=== PATIENT | male | born 1935 | race Caucasian/White ===

== ENCOUNTER 2017-02-07 22:31 | Inpatient (IN) ==
--- NOTE | 2017-02-07 22:37 | Emergency Department Note ---
START Narrative - START START: Emergency department with feeling like his legs were stuck to the floor. EMS was dispatched for difficulty in breathing. Patient denies this. He denies chest pain or abdominal pain. The swelling to his lower extremities on exam. Plan. Dyspnea workup. Patient will be seen by shift superintendent caustic cresylate.
[2017-02-07 22:58] LABS: Basophils # 0.1 K/mcL (0.0-0.2); Basophils % 0.8 %; Eosinophils # 0.3 K/mcL (0.0-0.6); Eosinophils % 4.4 %; Hematocrit 33.6 % (37.5-50.1); Hemoglobin 10.8 g/dL (12.9-16.9); Immature Granulocytes % 0.3 % (0-4); Lymphocytes % 15.6 %; Mean Corpuscular HGB Conc 32.1 g/dL (31.6-35.5); Mean Corpuscular Hemoglobin 31.6 pg (28.0-33.3); Mean Corpuscular Volume 98.2 fL (83.0-100.0); Mean Platelet Volume 8.6 fL (9.4-12.4); Monocytes # 0.6 K/mcL (0.0-1.3); Neutrophils # 4.6 K/mcL (1.6-8.9); Platelet Count 158 K/mcL (140-400); Red Blood Count 3.42 M/mcL (4.19-5.50); Red Cell Distribution Width 13.2 % (11.5-14.5); Segmented Neutrophils % 69.9 %
[2017-02-07 23:13] LABS: Calcium 8.6 mg/dL (8.6-10.8); Potassium 4.5 mEq/L (3.5-4.5)
--- NOTE | 2017-02-07 23:57 | Emergency Department Note ---
Disposition Clinical Impression: HEARD (dyspnea on exertion) Lower extremity edema Qualifiers: Laterality: bilateral Qualified Code(s): R60.0 - Localized edema Disposition: Admitted As Inpatient Condition: Fair General Adult HPI - General Chief complaint: ED Extremity Problem,Nontraumatic Stated complaint: bilateral leg edema Time Seen by Provider: 02/07/17 22:43 Source: patient Mode of arrival: private vehicle Limitations: no limitations Nursing Notes Reviewed: Yes Vital Signs Reviewed: Yes - History of Present Illness Pt Subjective Complaint: legs feel like they weigh a ton, generalized weakness, HEARD Onset (ago): day(s) ("Was fine - saw PCP in the office") Location: lower extremity Radiation: non-radiation Pain Severity: mild ("tightness") Pain Scale: 0 Quality: other Consistency: intermittent Improves with: nothing Worsens with: other (walking, trying to get into and out of bed) Associated symptoms: Reports: weakness. Denies: chest pain, cough, diaphoresis , fever/chills, headaches, loss of appetite, malaise, nausea/vomiting, rash, seizure, syncope Treatments Prior to Arrival: none - Related Data Home Medications Medication Instructions Recorded Confirmed Tamoxifen [Nolvadex] 20 mg PO DAILY 02/07/17 02/08/17 Warfarin [Coumadin] 7.5 mg PO QDPC 02/07/17 02/08/17 Ergocalciferol (VITAMIN D2) 400 unit PO QDPC 02/08/17 02/08/17 [Vitamin D] Allergies Allergy/AdvReac Type Severity Reaction Status Date / Time No Known Allergies Allergy Verified 02/07/17 22:49 All systems ED: reviewed and negative except as stated. Constitutional: Reports: weakness. Denies: fever, chills, weight change, night sweats ENT ED: Denies: congestion, dysphagia Cardiovascular: Reports: dyspnea on exertion, edema. Denies: chest pain, palpitations, orthopnea, syncope, paroxysmal nocturnal dyspnea Respiratory: Denies: cough, dyspnea, wheezes, hemoptysis, stridor, sputum production Gastrointestinal: Denies: abdominal pain, nausea, vomiting, diarrhea, constipation Genitourinary: Denies: dysuria, hematuria Musculoskeletal: Denies: back pain, neck pain, joint swelling Integumentary: Denies: rash, pruritus Neurological: Reports: weakness ("all over"). Denies: headache, numbness, paresthesias, vertigo Endocrine: Reports: fatigue Hematological/Lymphatic: Reports: easy bleeding, easy bruising. Denies: lymphadenopathy Past Medical History - Past Medical History Attestation: Yes The following information was validated with the patient. Source: patient Medical history: Reports: cancer Psychiatric history: Reports: no psych history - Social History Smoking Status: Never smoker Smokeless Tobacco Status: No Alcohol use: Reports: none Drug use: Reports: none Physical Exam - General Limitations: no limitations General appearance: alert, in no apparent distress - Head Head exam: atraumatic, normocephalic, normal inspection - Eye Eye exam: Present: normal appearance, PERRL. Absent: scleral icterus, conjunctival injection, periorbital swelling - ENT ENT exam: mucous membranes dry - Neck Neck exam: Present: normal inspection, full ROM, trachea midline. Absent: meningismus - Chest Chest inspection: Present: normal inspection, symmetric chest wall rise - Respiratory Respiratory exam: Absent: respiratory distress, wheezes, stridor, prolonged expiratory phase - Expanded Respiratory Exam Location: rales: Left, Right, Lower - Cardiovascular Cardiovascular exam: Present: regular rate, normal rhythm, normal heart sounds - Abdominal Exam Abdominal exam: Present: soft, Non-Tender. Absent: distention, guarding, rebound, rigidity, pulsatile mass - Neurological Exam Neurological exam: Present: alert, oriented X3, CN II-XII intact - Psychiatric Psychiatric exam: Present: normal affect, normal mood - Skin Skin exam: Present: warm, dry, intact, normal color Course Course Narrative: Patient was brought in by squad for evaluation of dyspnea. He states that he only felt short of breath because he "was doing a lot of work". When asked what type of work, he states that he was "trying to get up". He describes feeling like his legs weighed a ton and his feet were "glued to the floor." He denies unilateral weakness, paraesthesias, vertigo, ataxia, syncope, chest pain, palpitations, dyspnea at rest, or any other concerns. He states that he has had mild edema in his legs before, but "never this bad". Patient was initially seen by Dr. Calix. She put some orders in which have been resulted. Patient denies knowledge of his anemia or renal insufficiency. His ECG shows a sinus rhythm which changes into A-Fib. The rate was 120. Patient's rate and rhythm have been normal on the monitor. The EKG is the only time I've seen him tachy. He has no Hx of A-Fib. He is on Coumadin and is therapeutic. CXR shows a lung nodule. Outpatient CT is recommended. Patient is aware of this nodule and states that he has a CT of his chest done 2 or 3 times a year to check on it. Clinically, the patient appears to be in failure, however he has never been diagnosed with CHF, and his CXR does not show CM or edema. He has no ORTIZ at rest, is not hypoxic and has worsening renal function compared with a month ago, so I don't think IV lasix is the best choice right now. Will admit for gentle diuresis, echo, serial troponins, and further evaluation. Vital Signs Temperature 97.8 F 02/07/17 22:35 Pulse Rate 97 02/07/17 22:35 Respiratory Rate 20 02/07/17 22:35 Blood Pressure 124/89 02/07/17 22:35 O2 Sat by Pulse Oximetry 97 02/07/17 22:35 Temperature 97.8 F 02/08/17 05:14 Pulse Rate 81 02/08/17 05:14 Respiratory Rate 16 02/08/17 05:14 Blood Pressure 124/72 02/08/17 05:14 O2 Sat by Pulse Oximetry 99 02/08/17 05:14 Oxygen Delivery Oxygen Delivery Nasal Cannula Medical Decision Making - Medical Records Medical records reviewed: Yes I reviewed the patient's medical records. - Lab Data Lab results reviewed: Yes I reviewed the patient's lab results. Result diagrams: 02/07/17 22:52 02/07/17 22:52 Lab Results 02/07/17 02/07/17 02/07/17 Range/Units 22:52 22:52 22:52 WBC 6.6 (4.3-11.1) K/mcL RBC 3.42 L (4.19-5.50) M/mcL Hgb 10.8 L (12.9-16.9) g/dL Hct 33.6 L (37.5-50.1) % MCV 98.2 (83.0-100.0) fL MCH 31.6 (28.0-33.3) pg MCHC 32.1 (31.6-35.5) g/dL RDW 13.2 (11.5-14.5) % Plt Count 158 (140-400) K/mcL MPV 8.6 L (9.4-12.4) fL Immature Gran % 0.3 (0-4) % Seg Neutrophils % 69.9 % Lymphocytes % 15.6 % Monocytes % 9.0 % Eosinophils % 4.4 % Basophils % 0.8 % Neutrophils # 4.6 (1.6-8.9) K/mcL Lymphocytes # 1.0 (0.6-4.6) K/mcL Monocytes # 0.6 (0.0-1.3) K/mcL Eosinophils # 0.3 (0.0-0.6) K/mcL Basophils # 0.1 (0.0-0.2) K/mcL PT (9.4-12.1) Seconds INR APTT (26.0-36.0) Seconds Sodium 142 (136-145) mEq/L Potassium 4.5 (3.5-4.5) mEq/L Chloride 109 (98-109) mEq/L Carbon Dioxide 24 (19-29) mEq/L BUN 35 H (8-26) mg/dL Creatinine 1.59 H (0.72-1.25) mg/dL Est GFR ( Amer) 51 L (> 60) Est GFR (Non-Af Amer) 42 L (> 60) BUN/Creatinine Ratio 22 (6-26) Glucose 93 (70-99) mg/dL Calculated Osmolality 302 H (280-300) Calcium 8.6 (8.6-10.8) mg/dL Magnesium 2.4 (1.6-2.6) mg/dL Total Bilirubin 0.3 (0.2-1.2) mg/dL Direct Bilirubin 0.1 (0.0-0.5) mg/dL Indirect Bilirubin 0.2 (0.0-1.2) mg/dL AST 25 (5-34) Units/L ALT 18 (0-55) Units/L Alkaline Phosphatase 41 (38-126) Units/L Troponin I 0.01 (0-0.03) ng/mL B-Natriuretic Peptide (0-100) pg/mL Serum Total Protein 6.5 (6.0-8.3) g/dL Albumin 3.3 L (3.5-5.0) g/dL Globulin 3.2 (2.4-3.5) g/dL Albumin/Globulin Ratio 1.0 L (1.1-2.2) 02/07/17 02/07/17 Range/Units 22:52 22:52 WBC (4.3-11.1) K/mcL RBC (4.19-5.50) M/mcL Hgb (12.9-16.9) g/dL Hct (37.5-50.1) % MCV (83.0-100.0) fL MCH (28.0-33.3) pg MCHC (31.6-35.5) g/dL RDW (11.5-14.5) % Plt Count (140-400) K/mcL MPV (9.4-12.4) fL Immature Gran % (0-4) % Seg Neutrophils % % Lymphocytes % % Monocytes % % Eosinophils % % Basophils % % Neutrophils # (1.6-8.9) K/mcL Lymphocytes # (0.6-4.6) K/mcL Monocytes # (0.0-1.3) K/mcL Eosinophils # (0.0-0.6) K/mcL Basophils # (0.0-0.2) K/mcL PT 27.5 H (9.4-12.1) Seconds INR 2.5 APTT 38.1 H (26.0-36.0) Seconds Sodium (136-145) mEq/L Potassium (3.5-4.5) mEq/L Chloride (98-109) mEq/L Carbon Dioxide (19-29) mEq/L BUN (8-26) mg/dL Creatinine (0.72-1.25) mg/dL Est GFR ( Amer) (> 60) Est GFR (Non-Af Amer) (> 60) BUN/Creatinine Ratio (6-26) Glucose (70-99) mg/dL Calculated Osmolality (280-300) Calcium (8.6-10.8) mg/dL Magnesium (1.6-2.6) mg/dL Total Bilirubin (0.2-1.2) mg/dL Direct Bilirubin (0.0-0.5) mg/dL Indirect Bilirubin (0.0-1.2) mg/dL AST (5-34) Units/L ALT (0-55) Units/L Alkaline Phosphatase (38-126) Units/L Troponin I (0-0.03) ng/mL B-Natriuretic Peptide 259 H (0-100) pg/mL Serum Total Protein (6.0-8.3) g/dL Albumin (3.5-5.0) g/dL Globulin (2.4-3.5) g/dL Albumin/Globulin Ratio (1.1-2.2) - Radiology Data Radiology results reviewed: Yes I reviewed the patient's radiology results. Chest X-Ray 02/07/17 22:35 IMPRESSION: Right super hilar opacity, possible nodule. This is similar to 2014. Follow-up CT chest is suggested when feasible (if not previously performed). D/ / Mekhi Boyd MD / Mekhi Boyd MD Interpreting Provider: Mekhi Boyd MD
[2017-02-08 00:42] LABS: INR 2.5; Prothrombin Time 27.5 Seconds (9.4-12.1)
[2017-02-08 00:45] LABS: Activated Partial Thrombo Time 38.1 Seconds (26.0-36.0)
[2017-02-08 00:48] LABS: Albumin 3.3 g/dL (3.5-5.0); Bilirubin,Direct 0.1 mg/dL (0.0-0.5); Bilirubin,Indirect 0.2 mg/dL (0.0-1.2); Bilirubin,Total 0.3 mg/dL (0.2-1.2); Globulin 3.2 g/dL (2.4-3.5); Magnesium 2.4 mg/dL (1.6-2.6); Total Protein 6.5 g/dL (6.0-8.3)
--- NOTE | 2017-02-08 10:10 | Internal Med History&Physical ---
<Daniel Pineda - Last Filed: 02/08/17 12:30> Date of Encounter: 02/08/17 Time of Encounter: 10:09 Assessment and Plan (1) CHF (congestive heart failure) Current visit: Yes Status: Acute Patient meets the clinical diagnosis of heart failure. No previous diagnosis of heart failure. Last echo in 2013 had a normal EF and Moderate pulmonary HTN. Suspect diastolic heart failure or severe valvular dysfunction as Lungs are clear on examination but clinically edematous. Albumin is low but not significantly. - Bilateral LE pitting edema - New murmur - Abdominal fullness. Plan: - IV diuresis - Cardiac Diet - 2000ml fluid restrictions - daily weights - ASA daily - Echocardiogram Qualifiers: Qualified Code(s): I50.9 - Heart failure, unspecified (2) Cardiac murmur, unspecified Current visit: Yes Status: Acute (3) Leg weakness, bilateral Current visit: Yes Status: Acute Patient says he has felt more weak in his LE with difficulty moving them. This may be do to increased LE edema. Neurologically intact and does not appear the result of a stroke. Plan: - IV diuresis - PT/OT evaluation (4) Tachycardia Current visit: Yes Status: Acute Patient admitted with HR around 120. There was initial concern that his rhythm was switching into A-fib. Further review of the EKG appears to be Sinus Tachy. Currently he has a HR around 70. Plan: - Division Supervisor - Cause of Tachycardia is unknown but may be related to volume overload. (5) Lower extremity edema Current visit: Yes Status: Acute Likely secondary to increased intravascular volume. Can not rule out DVT but patient presented with an INR of 3.5 which makes it less likely to be a DVT. Plan: Gentle Diuresis Qualifiers: Laterality: bilateral Qualified Code(s): R60.0 - Localized edema (6) CHRISTY (acute kidney injury) Current visit: Yes Status: Acute CHRISTY on CKD. may be related to reduced cardiac output with tachycardia. Patient is clinically overloaded. May be a factor of Diastolic CHF or valvular dysfunction. Plan: - as plan above - monitor renal function with daily labs - renally dose antibiotics and avoid nephrotoxic medications. (7) Breast cancer in male Current visit: Yes Status: Acute Hx of left sided breast cancer with mastectomy 3 years ago. Patient continues with oral therapy. Plan: - Continue home medications. - Avoid left sided blood draws and line placements. Qualifiers: Qualified Code(s): C50.929 - Malignant neoplasm of unspecified site of unspecified male breast Internal Medicine - H&P: HPI Chief complaint: difficulty moving legs Admitted From: Emergency Dept Plans for Post Hospital Care: Home History of present illness: Mr. Stone is a 81 year old male with hx of left breast cancer and PE presented to the emergency department by EMS after he was short of breath and unable to walk. He says that over the past 2 weeks he has had increasing difficulty walking because he feet feel as though they are glued to the floor. He had contacted his PCP earlier in the week but his symptoms have worsened. He says that 2 days ago he was ambulating up and down stairs with difficulty and yesterday he felt as he could not lift his legs. He has also noticed increased edema in his LE and fullness in his abdomen. His shortness of breath has been progressive. He denies any medication changes. He is a poor historian regarding his medical hx and says he is unsure if he ever had a diagnosis of atrial fibrillation. He takes warfarin because he is on his Tamoxifen. He feels his breathing is improved. He does not taking any diuretics for his edema. He denies any cardiac history. Past Med Surg Social Fam HX - Past Medical History Medical history: cancer Psychiatric history: no psych history - Social History Smoking Status: Never smoker Smokeless Tobacco Status: No Alcohol use: none Drug use: none - Family History Sister Hx Family Cardiac Disorders: Yes (Stroke) Mother Adopted: No Hx Family Cardiac Disorders: Yes (HTN) Father Living Status: Hx Family Cancer: Yes (Lung) Internal Medicine - H&P: Meds Tamoxifen [Nolvadex] 20 mg PO DAILY 02/07/17 [History] Warfarin [Coumadin] 7.5 mg PO DAILY 02/07/17 [History] Ergocalciferol (VITAMIN D2) [Vitamin D] 400 unit PO DAILY 02/08/17 [History] Nystatin Cream [Mycostatin Cream] 1 appl TP BID 02/08/17 [History] Triamcinolone Acet 0.1% CRM [Kenalog] 1 appl TP BID 02/08/17 [History] Allergies No Known Allergies Allergy (Verified 02/07/17 22:49) All Systems PM: A 10-system review of systems was performed and is negative for pertinent findings except as documented above in the HPI. - Constitutional Constitutional: fatigue, falls, lethargy, no anorexia, no chills, no excessive sweating, no fever(s) - EENT Eyes: diplopia, no blurry vision, no change in vision Nose, mouth and throat: no dry mouth, no mouth lesions, no sore throat - Breasts Breasts: no pain - Cardiovascular Cardiovascular ROS IM: dyspnea, dyspnea on exertion, no chest pain, no claudication, no palpitations, no syncope - Respiratory Respiratory: dyspnea, no cough - Gastrointestinal Gastrointestinal: bloating, constipation, no hematemesis, no hematochezia, no loose stools - Genitourinary Genitourinary ROS male: no scrotal swelling - Neurological Neurological ROS: no confusion, no dizziness, no loss of vision, no memory loss - Constitutional Vitals: Temp Pulse Resp BP Pulse Ox 97.4 F L 79 16 141/88 100 02/08/17 07:48 02/08/17 07:48 02/08/17 07:48 02/08/17 07:48 02/08/17 07:48 General appearance: Present: cooperative, A&O X 3, pleasant, no acute distress - Head Head exam: Present: atraumatic, normocephalic - Eye Eye exam: Present: PERRL, conjuntiva pink, sclera anicteric Pupils: Present: PERRL - Neck Neck exam general surgery: Present: supple, trachea midline. Absent: lymphadenopathy - Respiratory Respiratory exam: Present: CTAB. Absent: accessory muscle use, rales, rhonchi, wheezes - Cardiovascular Cardiovascular exam: Present: RRR, +S1, +S2, systolic murmur. Absent: diastolic murmur, gallop, rubs Additional comments: grade 2/6 systolic/diastolic murmur - GI/Abdominal GI/Abdominal exam: Present: diminished bowel sounds, distended, firm. Absent: guarding, tenderness, no peritoneal signs - Extremities Exam Extremities exam: Present: pedal edema (bilateral LE edema 1+ pitting up to mid thigh), warm, radial pulses palpable and symetrical. Absent: calf tenderness, cyanotic - Neurological Exam Neurological exam: Present: alert, oriented X3, no focal deficits. Absent: pronater drift, facial droop, speech deficit - Psychiatric Psychiatric exam: Present: normal affect, normal mood Internal Med - H&P Results - Labs CBC & Chem 7: 02/07/17 22:52 02/07/17 22:52 <Kan Godwin - Last Filed: 02/08/17 13:09> Date of Encounter: 02/08/17 Internal Medicine - H&P: HPI History of present illness: Mr. Stone is a 81 year old male All Systems PM: A 10-system review of systems was performed and is negative for pertinent findings except as documented above in the HPI. - Constitutional Vitals: Temp Pulse Resp BP Pulse Ox 97.7 F 73 16 138/78 98 02/08/17 11:39 02/08/17 11:39 02/08/17 11:39 02/08/17 11:39 02/08/17 11:39 Internal Med - H&P Results - Labs CBC & Chem 7: 02/07/17 22:52 02/07/17 22:52 Labs: Urine 02/08/17 Range/Units 12:20 Urine Color Yellow (Yellow) Urine Clarity Cloudy A (Clear) Urine pH 6.0 (5.0-8.0) pH Units Ur Specific [place] 1.025 (1.010-1.025) Urine Protein Negative (Neg-Trace) mg/dL Urine Glucose (UA) Normal (Normal) mg/dL - Attending Attestation I examined this patient and my medical decision-making was reviewed with the TALENT DEVELOPMENT DIRECTOR/PA/Advanced Practice Nurse/Resident Physician. I agree with the documented findings, disposition and treatment plan as described except to the extent set forth below. 81 Y/O M with PMH of Breast CA since 2012 s/p mastectomy, radiation and chemo, on tamoxifen, PE on Coumadin, CKD II. He presented with complains of difficulty breathing and worsening leg edema, he reports his SOB has been progressive for the past 2 days and he has had leg edema in the past but this has recurred. He denies any cardiac history. He denies associated chest pain, palpitations, and abdominal symptoms. Labs and Imaging reviewed: CBC stable, chronic anemia, INR therapeutic 2.5, Chem at baseline with slightly increased creatinine, BNP 259, LFT unremarkable, CXR has no acute findings A/P: Suspected acute diastolic CHF exacerbation, SVTs on EKG, CHRISTY on CKD, Will give low dose of Lasix daily, with close monitoring of Chem, Obtain ECHO, continue Coumadin, Renal USS, Daily weight checks, Monitor INR, resume home meds , patient is not on BB at home, will hold for now, due to fluid overload, hold ACEI due to CHRISTY on CKD, PT/OT eval. Monitor on tele He is full code Rest of details as in Resident Hevianey documentation
[2017-02-08] MEDS ORDERED: Ondansetron 4 MG/2 ML VIAL IVP PRN (10:34)
[2017-02-08] MEDS ORDERED: Naloxone 0.4 MG/ML INJ IVP PRN (10:34)
[2017-02-08] MEDS: Furosemide 20 MG/2 ML VIAL IVP SCH (11:42)
[2017-02-08 12:39] LABS: Chol/HDL Ratio 3.6 (0-4.9)
[2017-02-08 12:42] LABS: Bilirubin,Urine Negative (Negative); Blood,Urine Negative (Negative); Clarity,Urine Cloudy (Clear); Color,Urine Yellow (Yellow); Glucose,Urine (UA) Normal (Normal); Ketones,Urine Negative (Negative); Leukocyte Esterase,Urine Moderate (Negative); Nitrite,Urine Negative (Negative); Protein,Urine Negative (Neg-Trace); Specific Gravity,Urine 1.025 (1.010-1.025); Urobilinogen,Urine Normal (Normal)
[2017-02-08 12:45] LABS: Bacteria,Urine None Seen per hpf (None-Few); Hyaline Casts,Urine None Seen per lpf (None-Few); RBC,Urine 0-3 per hpf (0-3); Squamous Epithelial Cell,Urine Many per lpf (None-Few); WBC,Urine 50-100 per hpf (0-3)
[2017-02-08] MEDS: Nystatin Cream 15 GM TUBE TP SCH (20:04)
[2017-02-08] MEDS: Triamcinolone Acet 0.1% CRM 15 GM TUBE TP SCH (20:05)
[2017-02-09 05:44] LABS: Basophils # 0.1 K/mcL (0.0-0.2); Basophils % 0.7 %; Eosinophils # 0.4 K/mcL (0.0-0.6); Eosinophils % 5.4 %; Hematocrit 33.9 % (37.5-50.1); Hemoglobin 10.7 g/dL (12.9-16.9); INR 2.4; Immature Granulocytes % 0.4 % (0-4); Lymphocytes # 1.6 K/mcL (0.6-4.6); Lymphocytes % 22.1 %; Mean Corpuscular HGB Conc 31.6 g/dL (31.6-35.5); Mean Corpuscular Hemoglobin 31.2 pg (28.0-33.3); Mean Corpuscular Volume 98.8 fL (83.0-100.0); Mean Platelet Volume 8.9 fL (9.4-12.4); Monocytes # 0.5 K/mcL (0.0-1.3); Neutrophils # 4.5 K/mcL (1.6-8.9); Platelet Count 161 K/mcL (140-400); Prothrombin Time 26.3 Seconds (9.4-12.1); Red Blood Count 3.43 M/mcL (4.19-5.50); Red Cell Distribution Width 13.3 % (11.5-14.5); Segmented Neutrophils % 64.4 %
[2017-02-09 05:57] LABS: BUN/Creatinine Ratio 22 (6-26); Blood Urea Nitrogen 28 mg/dL (8-26); Calcium 8.5 mg/dL (8.6-10.8); Carbon Dioxide 24 mEq/L (19-29); Chloride 106 mEq/L (98-109); Glucose 89 mg/dL (70-99); Osmolality,Calculated 293 (280-300); Potassium 3.9 mEq/L (3.5-4.5); Sodium 139 mEq/L (136-145); eGFR For African Americans > 60 (> 60); eGFR For Non-African Americans 53 (> 60)
--- NOTE | 2017-02-09 09:28 | Electrocardiograph Report ---
[address] [place] [address] Test Date: 2017-02-07 Pat Name: Edison Stone Department: 105 Room: 3B Gender: M Cut Out Marker: : 1935 Requested By: Dionna See Order Number: [id number] Reading MD: Dontrell Shaffer MD Measurements Intervals [place] Rate: 120 P: AK: 0 QRS: -29 QRSD: 110 T: 59 QT: 322 QTc: 393 Interpretive Statements ATRIAL FIBRILLATION WITH RAPID VENTRICULAR RESPONSE INCOMPLETE RIGHT BUNDLE BRANCH BLOCK POSSIBLE LATERAL MYOCARDIAL INFARCTION, PROBABLY OLD Electronically Signed On 02-09-2017 9:26:45 EDT by Dontrell Shaffer MD
[2017-02-09] MEDS: Furosemide 20 MG/2 ML VIAL IVP SCH (10:55)
[2017-02-09] MEDS: Pantoprazole 40 MG VIAL IVP SCH (10:55)
[2017-02-09] MEDS: Nystatin Cream 15 GM TUBE TP SCH ×2 (10:56→22:10)
[2017-02-09] MEDS: Triamcinolone Acet 0.1% CRM 15 GM TUBE TP SCH ×2 (10:56→22:10)
--- NOTE | 2017-02-09 13:23 | ECHO - Doppler Report ---
Echocardiogram Name: Edison Stone Date of Study: 02/09/2017 Date: 1935 Ht: 72.0 in Medical Record#: [id number] Age: 81 Wt: 240.0 lb Gender: Male BSA: 2.3 Order #: [id number] Location: [facility] Room #: 3B44 Reading Physician: Charli Alberto DO, FACC, MILAGROS Archaeologist: INOCENTE GarciaT, RDCS Ordering Physician: Ludy Douglass CNP Primary Physician: Benny Miller MD Indications: Congestive heart failure Impressions: Technically sub-optimal due to poor echocardiographic windows. LVEF 60-65%. Grossly normal LV chamber size, wall thickness and function. Mild left ventricular diastolic dysfunction. Normal right ventricular structure and function. Aortic valve was not well visualized, but grossly appear calcified. No evidence of aortic stenosis by Doppler. No evidence of pulmonary hypertension. Left Ventricular Wall Motion: Rest Echo Findings All wall segments showed normal motion. Findings: Study Quality * Technically sub-optimal due to poor echocardiographic windows. ECG Findings * Normal sinus rhythm. Left Ventricle * LVEF 60-65%. * Grossly normal LV chamber size, wall thickness and function. * Mild left ventricular diastolic dysfunction. Right Ventricle * Normal right ventricular structure and function. Left Atrium * Mildly dilated left atrium. Right Atrium * Normal right atrial size. Interatrial Septum * Interatrial septum not well evaluated. Aortic Valve * Aortic valve was not well visualized, but grossly appear calcified. * No aortic regurgitation. * No evidence of aortic stenosis by Doppler. Mitral Valve * Normal mitral valve structure and function. * No mitral regurgitation. * No mitral stenosis. Tricuspid Valve * Normal tricuspid valve structure and function. * Trace tricuspid regurgitation. * No evidence of pulmonary hypertension. Pulmonic Valve * Pulmonic valve not well visualized. Aorta * Normally sized aortic root. Pericardium * The pericardium appears normal. IVC * The IVC is not well evaluated. Pulmonary Artery * Pulmonary artery not well visualized. History Measurements: BP: 125/ 75 2D Normal Values IVSd: .90 cm 0.6 - 1.0 cm LVIDd: 3.30 cm 3.7 - 5.6 cm LVPWd: 1.00 cm 0.6 - 1.1 cm LVIDs: 2.60 cm 1.5 - 3.6 cm AO: 2.60 cm < 4.0 cm LA: 3.00 cm 2.0 - 4.0cm %FS: 21.20 cm >25 % LA volume: 44 Mitral Valve Dec Time:232.00 msec Peak E:.73 m/sec Peak A:.98 m/sec E/A Ratio:0.7 Peak E' Lat Fili:10 cm/s Peak E' Med Fili:10 cm/s E/E' Lat Ratio:7.3 E/E' Med Ratio:7.3 Tricuspid Valve TV Regurg Peak Grad: 20.00mmHg TV Regurg Peak Fili: 2.25m/sec Updated by Charli Alberto DO, FACAna Rosa, MILAGROS, PATY on 02/09/2017 1:16:13 PM electronically signed on 02/09/2017 1:17:12 PM with status of Final Wall Motion Mehta: 1=Normal, 2=Hypokinesis, 3=Akinesis, 4=Dyskinesis, 5=Aneurysmal, 6=Hyperkinetic, X=Not Visualized (Blank)=Missing
[2017-02-09] MEDS: *HR* Warfarin 7.5 MG TABLET PO SCH (17:34)
--- NOTE | 2017-02-09 18:54 | Internal Med Progress Note ---
Date of Encounter: 02/09/17 Time of Encounter: 14:30 - Assessment and plan (1) CHF (congestive heart failure) Current Visit: Yes Status: Acute Assessment and plan: Patient is diuresing well. His lower extremity edema and dyspnea are improving. Renal functioning now back to his baseline. OT and PT consultations are pending. Echocardiogram revealing preserved ejection fraction of 60-65% with mild diastolic dysfunction. Likely new diagnosis of acute diastolic heart failure. We will continue to diurese. Echocardiogram impressions: Technically suboptimal due to poor echocardiographic windows. LVEF 60-65%. Grossly normal LV chamber size, wall thickness and function. Mild left ventricular diastolic dysfunction. Normal right ventricular structure and function. Aortic valve was not well visualized , but grossly appeared calcified. No evidence of aortic stenosis by Doppler. No evidence of pulmonary hypertension. (2) CKD (chronic kidney disease) stage 3, GFR 30-59 ml/min Current Visit: Yes Status: Chronic Assessment and plan: Mild acute kidney injury superimposed on chronic kidney disease stage III resolved. He is now consistent with his baseline. We will continue to trend. (3) Acute respiratory failure Current Visit: Yes Status: Acute Assessment and plan: Currently requiring supplemental oxygenation, no oxygen at home. We will wean as he tolerates. Qualifiers: Respiratory failure complication: hypoxia Qualified Code(s): J96.01 - Acute respiratory failure with hypoxia (4) Lower extremity edema Current Visit: Yes Status: Acute Assessment and plan: Resolving, diuresing. We will trend. Currently with 2+ pitting edema bilaterally which the patient and his state is an improvement from when he arrived. Qualifiers: Laterality: bilateral Qualified Code(s): R60.0 - Localized edema (5) HEARD (dyspnea on exertion) Current Visit: Yes Status: Acute (6) Cardiac murmur, unspecified Current Visit: Yes Status: Acute (7) Leg weakness, bilateral Current Visit: Yes Status: Acute Assessment and plan: OT and PT consultations are pending. Patient stating he does not feel as if he could not stand up. (8) Tachycardia Current Visit: Yes Status: Resolved (9) Breast cancer in male Current Visit: Yes Status: Chronic Assessment and plan: Status post mastectomy on the left 3 years ago. Continues with oral therapy. Avoid blood draws a line placements the left side (10) Anticoagulated on Coumadin Current Visit: Yes Status: Chronic Assessment and plan: INR therapeutic at 2.4 - Subjective Interval history: Patient seen and examined. On examination, patient is sitting upright in bed conversing with his . Patient sitting his shortness of breath has improved but is not yet back to his baseline. Patient sitting is eating and drinking well. Patient said the swelling in his legs appears to be going down slightly but not back to his baseline. He still endorses extreme weakness does not think that he will be away to stand up. - Constitutional Vitals: Temp Pulse Resp BP Pulse Ox 97.7 F 70 16 125/73 98 02/09/17 14:42 02/09/17 10:44 02/09/17 14:42 02/09/17 14:42 02/09/17 14:42 General appearance: Present: cooperative, A&O X 3, pleasant, no acute distress, answers questions appropriately - Head Head exam: Present: atraumatic, normocephalic - Eye Eye exam: Present: PERRL, conjuntiva pink, sclera anicteric Pupils: Present: PERRL - Neck Neck exam general surgery: Present: supple, trachea midline. Absent: lymphadenopathy - Respiratory Respiratory exam: Present: CTAB. Absent: accessory muscle use, rales, respiratory distress, rhonchi, wheezes - Cardiovascular Cardiovascular exam: Present: RRR, +S1, +S2. Absent: diastolic murmur, gallop, rubs, systolic murmur - GI/Abdominal GI/Abdominal exam: Present: distended, normal bowel sounds, soft, no peritoneal signs. Absent: tenderness - Extremities Exam Extremities exam: Present: pedal edema (2+ bilaterally), warm, radial pulses palpable and symetrical. Absent: calf tenderness, cyanotic - Neurological Exam Neurological exam: Present: alert, CN II-XII intact, oriented X3, no focal deficits, strengths equal and symetr throughout. Absent: pronater drift, facial droop, speech deficit - Skin Skin exam: Present: dry, intact, normal color, warm Internal Medicine: Result - Labs CBC & Chem 7: 02/09/17 05:12 02/09/17 05:12 Labs: Short CBC 02/09/17 Range/Units 05:12 WBC 7.0 (4.3-11.1) K/mcL Hgb 10.7 L (12.9-16.9) g/dL Hct 33.9 L (37.5-50.1) % Plt Count 161 (140-400) K/mcL Neutrophils # 4.5 (1.6-8.9) K/mcL BMP 02/09/17 05:12 Sodium 139 Potassium 3.9 Chloride 106 Carbon Dioxide 24 BUN 28 H Creatinine 1.29 H Glucose 89 Calcium 8.5 L - ABG Interpretation ABG results: PT/INR, D-dimer PT 26.3 Seconds (9.4-12.1) H 02/09/17 05:12 Consult Discharge Plan - Plan Referrals: Benny Miller MD [Primary Care Provider] - 02/11/17 10:00 am
[2017-02-10 05:40] LABS: Basophils % 0.6 %; Eosinophils # 0.4 K/mcL (0.0-0.6); Eosinophils % 6.1 %; Hematocrit 32.7 % (37.5-50.1); Hemoglobin 10.5 g/dL (12.9-16.9); Immature Granulocytes % 0.3 % (0-4); Lymphocytes # 1.3 K/mcL (0.6-4.6); Lymphocytes % 19.1 %; Mean Corpuscular HGB Conc 32.1 g/dL (31.6-35.5); Mean Corpuscular Hemoglobin 31.3 pg (28.0-33.3); Mean Corpuscular Volume 97.3 fL (83.0-100.0); Mean Platelet Volume 8.7 fL (9.4-12.4); Monocytes # 0.6 K/mcL (0.0-1.3); Monocytes % 8.7 %; Neutrophils # 4.5 K/mcL (1.6-8.9); Platelet Count 152 K/mcL (140-400); Red Blood Count 3.36 M/mcL (4.19-5.50); Red Cell Distribution Width 13.1 % (11.5-14.5); Segmented Neutrophils % 65.2 %
[2017-02-10 05:46] LABS: INR 2.1; Prothrombin Time 22.9 Seconds (9.4-12.1)
[2017-02-10 06:14] LABS: BUN/Creatinine Ratio 26 (6-26); Blood Urea Nitrogen 32 mg/dL (8-26); Calcium 8.4 mg/dL (8.6-10.8); Carbon Dioxide 24 mEq/L (19-29); Chloride 107 mEq/L (98-109); Glucose 96 mg/dL (70-99); Osmolality,Calculated 297 (280-300); Sodium 140 mEq/L (136-145); eGFR For African Americans > 60 (> 60); eGFR For Non-African Americans 57 (> 60)
[2017-02-10] MEDS: Triamcinolone Acet 0.1% CRM 15 GM TUBE TP SCH ×2 (09:37→21:50)
[2017-02-10] MEDS: Furosemide 20 MG/2 ML VIAL IVP SCH (09:37)
[2017-02-10] MEDS: Nystatin Cream 15 GM TUBE TP SCH ×2 (09:37→21:51)
[2017-02-10] MEDS: Pantoprazole 40 MG VIAL IVP SCH (09:37)
--- NOTE | 2017-02-10 12:57 | Internal Med Progress Note ---
Date of Encounter: 02/10/17 Time of Encounter: 10:45 - Subjective Interval history: Patient was examined this morning at approximately 1045. Family member at bedside. Patient reports pain all over just since this morning. Family member states that when he complains of pain that it is 10 out of 10 because he never complains of pain. Patient has to be prompted to answer questions. Family states that patient does not like to speak when he is in pain. After prompting he describes the pain is achy, diffuse from head to toes, he reports clear rhinorrhea, and fatigue since last night. He also reports low abdominal pain without nausea, vomiting, or diarrhea. His urine yesterday was negative. He is unsure of place or time. He is alert and oriented to name. Family says that this is normal for him. He does have rhonchi and wheezing in posterior bases. Urine yesterday was negative and I did order flu swab. - Constitutional Vitals: Temp Pulse Resp BP Pulse Ox 97.8 F 71 17 111/69 98 02/10/17 12:26 02/10/17 12:26 02/10/17 11:32 02/10/17 12:26 02/10/17 12:26 General appearance: Present: cooperative, A&O X 3, pleasant, no acute distress, answers questions appropriately Internal Medicine: Result - Labs CBC & Chem 7: 02/10/17 05:15 02/10/17 05:15 Labs: Short CBC 02/10/17 Range/Units 05:15 WBC 6.9 (4.3-11.1) K/mcL Hgb 10.5 L (12.9-16.9) g/dL Hct 32.7 L (37.5-50.1) % Plt Count 152 (140-400) K/mcL Neutrophils # 4.5 (1.6-8.9) K/mcL BMP 02/10/17 05:15 Sodium 140 Potassium 4.0 Chloride 107 Carbon Dioxide 24 BUN 32 H Creatinine 1.21 Glucose 96 Calcium 8.4 L - ABG Interpretation ABG results: PT/INR, D-dimer PT 22.9 Seconds (9.4-12.1) H 02/10/17 05:15 Consult Discharge Plan - Plan Referrals: Benny Miller MD [Primary Care Provider] - 02/11/17 10:00 am Internal Medicine - CN: Leia - Labs CBC & Chem 7: 02/10/17 05:15 02/10/17 05:15 Labs: Short CBC 02/10/17 Range/Units 05:15 WBC 6.9 (4.3-11.1) K/mcL Hgb 10.5 L (12.9-16.9) g/dL Hct 32.7 L (37.5-50.1) % Plt Count 152 (140-400) K/mcL Neutrophils # 4.5 (1.6-8.9) K/mcL BMP 02/10/17 05:15 Sodium 140 Potassium 4.0 Chloride 107 Carbon Dioxide 24 BUN 32 H Creatinine 1.21 Glucose 96 Calcium 8.4 L - ABG Interpretation ABG results: PT/INR, D-dimer PT 22.9 Seconds (9.4-12.1) H 02/10/17 05:15
--- NOTE | 2017-02-10 13:46 | Internal Med Progress Note ---
Date of Encounter: 02/10/17 Time of Encounter: 10:45 - Assessment and plan (1) CHF (congestive heart failure) Current Visit: Yes Status: Acute Assessment and plan: Mr. Stone had an echocardiogram on February 09. Indicated congestive heart failure. Is a suboptimal study due to poor echocardiographic windows. LVEF is 60-65%. Grossly normal LV chamber size, wall thickness and function. Mild diastolic dysfunction, normal right ventricular structure and function. Aortic valve appeared grossly calcified. No evidence of aortic stenosis or pulmonary hypertension. by Doppler. Patient has 2+ pitting edema to bilateral lower extremities. He states this is actually better than yesterday. His lungs are clear and diminished posteriorly. He denies cough. Lasix 20 mg IV daily Renal function has returned to baseline, within normal limits. Creatinine 1.21. Continue to monitor labs Telemetry Vital signs Qualifiers: Congestive heart failure type: diastolic Congestive heart failure chronicity: acute Qualified Code(s): I50.31 - Acute diastolic (congestive) heart failure (2) HEARD (dyspnea on exertion) Current Visit: Yes Status: Acute Assessment and plan: Plan as above. (3) Lower extremity edema Current Visit: Yes Status: Chronic Assessment and plan: Resolving. Patient has 2+ pitting edema to bilateral lower extremities. Patient states this is better than yesterday. Plan as above Qualifiers: Laterality: bilateral Qualified Code(s): R60.0 - Localized edema (4) Leg weakness, bilateral Current Visit: Yes Status: Acute Assessment and plan: Patient was assessed by physical therapy today. He was a 2 person assist to get up to the bedside. They were unable to get him to standing. He was unable to use the walker. They did recommend inpatient rehabilitation for him. He says he needs to think about it. says that he would like to go to [employer] [facility], he has family member who works there. I did speak with the social insurance administrator about this and she will speak with patient. Continue physical therapy Inpatient rehabilitation placement Fall precautions (5) Tachycardia Current Visit: Yes Status: Resolved (6) Breast cancer in male Current Visit: Yes Status: Chronic Assessment and plan: Patient has linear healed incision to left chest. Continues to take by mouth medications. No blood draws or blood pressures to left side Continue home medications. Qualifiers: Breast location: unspecified site of breast Laterality: left Qualified Code(s): C50.922 - Malignant neoplasm of unspecified site of left male breast (7) CKD (chronic kidney disease) stage 3, GFR 30-59 ml/min Current Visit: Yes Status: Chronic Assessment and plan: Creatinine has returned to normal today 1.21. Avoid nephrotoxins and NSAIDs Continue to monitor labs (8) Anticoagulated on Coumadin Current Visit: Yes Status: Chronic Assessment and plan: INR is 2.1 today. Redraw in the morning. - Time Spent With Patient less than 15 minutes - Subjective Interval history: Patient was evaluated approximately 1045 this morning. When I initially entered the room he was being evaluated by physical therapy. He was unable to stand with 2 person assist. He was a two-person assist just to get up to the side of the bed. The verbally recommended inpatient rehabilitation to me. Patient states he needs to think about it and wants to question his family before he makes a decision. He states that he would like to go to [facility] because he has family who work there. His is at bedside in this supportive of him going to rehabilitation. He is alert and oriented, he has 2+ pitting edema to bilateral lower extremities. He reports that he has not had a bowel movement for 3 days. He is already getting MiraLAX and Colace. I did talk to the social insurance administrator about speaking to him about placement today. Mr. Stone is hard of hearing, wears a hearing aid. He says that he may decide to sign out AMA and go home. - Constitutional Vitals: Temp Pulse Resp BP Pulse Ox 97.8 F 71 17 111/69 98 02/10/17 12:26 02/10/17 12:26 02/10/17 11:32 02/10/17 12:26 02/10/17 12:26 General appearance: Present: cooperative, A&O X 3, pleasant, no acute distress, answers questions appropriately - Head Head exam: Present: normal inspection - Eye Eye exam: Present: normal appearance, conjuntiva pink - ENT ENT exam: Present: mucous membranes moist, normal exam - Neck Neck exam general surgery: Present: normal inspection. Absent: lymphadenopathy , tenderness - Respiratory Respiratory exam: Present: decreased breath sounds, CTAB. Absent: rales, respiratory distress, rhonchi, wheezes - Cardiovascular Cardiovascular exam: Present: RRR, +S1, +S2. Absent: diastolic murmur, systolic murmur - GI/Abdominal GI/Abdominal exam: Present: normal bowel sounds, soft. Absent: hepatomegaly, tenderness - Extremities Exam Extremities exam: Present: pedal edema, warm, radial pulses palpable and symetrical. Absent: tenderness Additional comments: Patient has 2+ pitting edema to bilateral lower extremities. Pedal pulses not palpable due to edema. Bilateral feet are pink and warm. - Neurological Exam Neurological exam: Present: alert, oriented X3, no focal deficits. Absent: facial droop, speech deficit Internal Medicine: Result - Labs CBC & Chem 7: 02/10/17 05:15 02/10/17 05:15 Labs: Short CBC 02/10/17 Range/Units 05:15 WBC 6.9 (4.3-11.1) K/mcL Hgb 10.5 L (12.9-16.9) g/dL Hct 32.7 L (37.5-50.1) % Plt Count 152 (140-400) K/mcL Neutrophils # 4.5 (1.6-8.9) K/mcL BMP 02/10/17 05:15 Sodium 140 Potassium 4.0 Chloride 107 Carbon Dioxide 24 BUN 32 H Creatinine 1.21 Glucose 96 Calcium 8.4 L - ABG Interpretation ABG results: PT/INR, D-dimer PT 22.9 Seconds (9.4-12.1) H 02/10/17 05:15 Consult Discharge Plan - Plan Referrals: Benny Miller MD [Primary Care Provider] - 02/11/17 10:00 am
--- NOTE | 2017-02-10 14:05 | Event Note ---
Date of Encounter: 02/10/17 Time of Encounter: 13:45 I was notified by patient's nurse that he was choking frequently today. While eating lunch, he choked on liquids on his tray. witnessed the episode and said that he turned blue and was unable to speak or breathe. Nurse reports the patient breathing is normal at this time and he has recovered. Stat portable chest x-ray was ordered, as well as speech and swallow. We will continue to monitor.
[2017-02-10] MEDS: *HR* Warfarin 7.5 MG TABLET PO SCH (17:24)
[2017-02-10] MEDS ORDERED: *HR* Metoprolol 5 MG/5 ML VIAL IVP ONE (21:38)
[2017-02-11 04:37] LABS: Basophils % 0.2 %; Eosinophils % 0.1 %; Hematocrit 31.7 % (37.5-50.1); Hemoglobin 10.4 g/dL (12.9-16.9); Immature Granulocytes % 0.4 % (0-4); Lymphocytes # 1.1 K/mcL (0.6-4.6); Lymphocytes % 8.6 %; Mean Corpuscular HGB Conc 32.8 g/dL (31.6-35.5); Mean Corpuscular Hemoglobin 32.1 pg (28.0-33.3); Mean Corpuscular Volume 97.8 fL (83.0-100.0); Mean Platelet Volume 9.2 fL (9.4-12.4); Monocytes # 0.7 K/mcL (0.0-1.3); Monocytes % 5.3 %; Neutrophils # 11.2 K/mcL (1.6-8.9); Platelet Count 141 K/mcL (140-400); Red Blood Count 3.24 M/mcL (4.19-5.50); Red Cell Distribution Width 13.2 % (11.5-14.5); Segmented Neutrophils % 85.4 %
[2017-02-11 04:40] LABS: INR 2.3
[2017-02-11 04:56] LABS: BUN/Creatinine Ratio 24 (6-26); Blood Urea Nitrogen 32 mg/dL (8-26); Calcium 8.4 mg/dL (8.6-10.8); Carbon Dioxide 24 mEq/L (19-29); Chloride 103 mEq/L (98-109); Glucose 129 mg/dL (70-99); Osmolality,Calculated 291 (280-300); Sodium 136 mEq/L (136-145); eGFR For African Americans > 60 (> 60); eGFR For Non-African Americans 51 (> 60)
[2017-02-11] MEDS: Furosemide 20 MG/2 ML VIAL IVP SCH (09:33)
[2017-02-11] MEDS: Pantoprazole 40 MG VIAL IVP SCH (09:33)
[2017-02-11] MEDS: Triamcinolone Acet 0.1% CRM 15 GM TUBE TP SCH ×2 (09:34→21:15)
[2017-02-11] MEDS: Nystatin Cream 15 GM TUBE TP SCH ×2 (09:34→21:13)
[2017-02-11] MEDS: *HR* Warfarin 7.5 MG TABLET PO SCH (17:02)
[2017-02-11] MEDS: Acetaminophen 325 MG TABLET PO PRN (21:05)
--- NOTE | 2017-02-11 21:10 | Internal Med Progress Note ---
Date of Encounter: 02/11/17 Time of Encounter: 08:15 - Assessment and plan (1) CHF (congestive heart failure) Current Visit: Yes Status: Acute Assessment and plan: Patient admitted congestive heart failure. His labs remained within normal limits. Today during examination S1 and S2 were heard with a regular rate and rhythm. No tachycardia noted. He has 2+ nonpitting edema to bilateral lower extremities. and patient both state that they look better. I agree Lasix 20 mg IV daily We will continue to monitor his labs He remains on telemetry Vital signs Qualifiers: Congestive heart failure type: diastolic Congestive heart failure chronicity: acute Qualified Code(s): I50.31 - Acute diastolic (congestive) heart failure (2) HEARD (dyspnea on exertion) Current Visit: Yes Status: Acute Assessment and plan: Plan as above. (3) Lower extremity edema Current Visit: Yes Status: Chronic Assessment and plan: Resolving. Patient has 2+ pitting edema to bilateral lower extremities. Patient and both states this is better than yesterday. Plan as above Qualifiers: Laterality: bilateral Qualified Code(s): R60.0 - Localized edema (4) Leg weakness, bilateral Current Visit: Yes Status: Acute Assessment and plan: Patient is receiving physical therapy. He is to go to [facility] tomorrow for rehabilitation PT. (5) Tachycardia Current Visit: Yes Status: Resolved Assessment and plan: Patient had episode of A. fib RVR in the emergency department. He converted. Last night potentially he could have gone back into A. fib as well. Despite a verbal order EKG was never obtained. He did convert and rate slowed below 100 with IV and by mouth beta galileo. We will reassess in the morning. (6) Breast cancer in male Current Visit: Yes Status: Chronic Assessment and plan: Patient has linear healed incision to left chest. Continues to take by mouth medications. No blood draws or blood pressures to left side Continue home medications. Qualifiers: Breast location: unspecified site of breast Laterality: left Qualified Code(s): C50.922 - Malignant neoplasm of unspecified site of left male breast (7) CKD (chronic kidney disease) stage 3, GFR 30-59 ml/min Current Visit: Yes Status: Chronic Assessment and plan: Creatinine is 1.35 today. Near baseline. Patient is not on an IGNACIO inhibitor or an ARB Avoid nephrotoxins Lasix dose at 20 mg IV daily Continue to monitor labs in the morning. (8) Anticoagulated on Coumadin Current Visit: Yes Status: Chronic Assessment and plan: INR is 2.1 today. Redraw in the morning. - Subjective Interval history: I assessed Mr. Cervantes early this morning at approximately 08 15 due to report from nurse on retail shift supervisor that he had a mental status change. Apparently last night he was talking to rabbits outside the window. Patient is on the third floor. He was speaking to his asking someone else in the room to please take her home even though they were the only 2 in the room. reports confusion over the last 2 weeks with visual hallucinations. She says that about a week and half ago he was standing in the kitchen talking to someone who was not there. Patient states that he was reading about the neighbor in the newspaper and was talking to them in the kitchen. She also has noticed that his gait has slowed and that he needs help getting in and out of bed for the last 2 weeks. She also reports that he has been repeating stories over the last 2 weeks and has no recollection of telling her more than once. - Constitutional Vitals: Temp Pulse Resp BP Pulse Ox 100.9 F H 95 16 117/74 96 02/11/17 19:33 02/11/17 19:33 02/11/17 19:33 02/11/17 19:33 02/11/17 19:33 General appearance: Present: cooperative, A&O X 3, pleasant, no acute distress, answers questions appropriately Internal Medicine: Result - Labs CBC & Chem 7: 02/11/17 03:58 02/11/17 03:58 Labs: Short CBC 02/11/17 Range/Units 03:58 WBC 13.1 H D (4.3-11.1) K/mcL Hgb 10.4 L (12.9-16.9) g/dL Hct 31.7 L (37.5-50.1) % Plt Count 141 (140-400) K/mcL Neutrophils # 11.2 H (1.6-8.9) K/mcL BMP 02/11/17 03:58 Sodium 136 Potassium 4.0 Chloride 103 Carbon Dioxide 24 BUN 32 H Creatinine 1.35 H Glucose 129 H Calcium 8.4 L - ABG Interpretation ABG results: PT/INR, D-dimer PT 25.0 Seconds (9.4-12.1) H 02/11/17 03:58 Consult Discharge Plan - Plan Referrals: Benny Miller MD [Primary Care Provider] - 02/11/17 10:00 am
[2017-02-12 06:17] LABS: Hematocrit 31.9 % (37.5-50.1); Hemoglobin 10.1 g/dL (12.9-16.9); Mean Corpuscular HGB Conc 31.7 g/dL (31.6-35.5); Mean Corpuscular Hemoglobin 31.2 pg (28.0-33.3); Mean Corpuscular Volume 98.5 fL (83.0-100.0); Mean Platelet Volume 9.3 fL (9.4-12.4); Platelet Count 135 K/mcL (140-400); Red Blood Count 3.24 M/mcL (4.19-5.50); Red Cell Distribution Width 12.9 % (11.5-14.5)
[2017-02-12 06:24] LABS: INR 2.3; Prothrombin Time 25.6 Seconds (9.4-12.1)
[2017-02-12 06:40] LABS: BUN/Creatinine Ratio 24 (6-26); Blood Urea Nitrogen 31 mg/dL (8-26); Calcium 8.4 mg/dL (8.6-10.8); Carbon Dioxide 26 mEq/L (19-29); Chloride 102 mEq/L (98-109); Glucose 111 mg/dL (70-99); Osmolality,Calculated 291 (280-300); Potassium 3.7 mEq/L (3.5-4.5); Sodium 137 mEq/L (136-145); eGFR For African Americans > 60 (> 60); eGFR For Non-African Americans 52 (> 60)
[2017-02-12 07:06] LABS: Eosinophils # 0.7 K/mcL (0.0-0.6); Lymphocytes # 0.9 K/mcL (0.6-4.6); Monocytes # 0.5 K/mcL (0.0-1.3); Neutrophils # 9.3 K/mcL (1.6-8.9)
[2017-02-12 07:07] LABS: Platelet Estimate Slight Decrease (Normal); Polychromasia 1+ (Not Present)
[2017-02-12] MEDS ORDERED: Vancomycin 1,750 MG in D5% in Water 250 ML IVPB ONE (08:00)
[2017-02-12] MEDS: Piperacillin/Tazobactam 3.375 GM in D5% in Water (Mini-Bag+) 100 ML IVPB SCH ×3 (10:12→23:06)
[2017-02-12] MEDS: Furosemide 20 MG/2 ML VIAL IVP SCH (10:12)
[2017-02-12] MEDS: Pantoprazole 40 MG VIAL IVP SCH (10:12)
[2017-02-12] MEDS: Nystatin Cream 15 GM TUBE TP SCH ×2 (10:13→20:39)
[2017-02-12] MEDS: Triamcinolone Acet 0.1% CRM 15 GM TUBE TP SCH ×2 (10:13→20:38)
[2017-02-12] MEDS: *HR* Warfarin 7.5 MG TABLET PO SCH (16:37)
--- NOTE | 2017-02-12 18:37 | Internal Med Progress Note ---
Date of Encounter: 02/12/17 Time of Encounter: 08:30 - Assessment and plan (1) HCAP (healthcare-associated pneumonia) Current Visit: Yes Status: Acute Assessment and plan: Patient reported nonproductive cough onset yesterday. I was not made aware of this. He did have an elevated white count 13 yesterday. Happened to be here late last night and noticed that he also had an elevated temperature greater than 101. I obtained a chest x-ray that showed mild haziness in the upper lung region suggesting pneumonitis versus developing edema or pneumonia. This morning patient has rhonchi with wheezing in the bilateral bases posteriorly Due to the other symptoms and went ahead and begin treating him for HCAP. He was to go to [facility] today for rehabilitation. We will keep him a few more days to monitor closely. Oxygen as needed to maintain saturations Vancomycin pharmacy to dose Zosyn 3.375 g IV every 8 hours Monitor labs Monitor patient Albuterol and DuoNeb's when necessary Mucinex scheduled twice a day (2) CHF (congestive heart failure) Current Visit: Yes Status: Acute Assessment and plan: His labs remained within normal limits. He has 2+ nonpitting edema to bilateral lower extremities. Lasix 20 mg IV daily We will continue to monitor his labs He remains on telemetry Vital signs Qualifiers: Congestive heart failure type: diastolic Congestive heart failure chronicity: acute Qualified Code(s): I50.31 - Acute diastolic (congestive) heart failure (3) HEARD (dyspnea on exertion) Current Visit: Yes Status: Acute Assessment and plan: Plan as above. (4) Lower extremity edema Current Visit: Yes Status: Chronic Assessment and plan: 2+ nonpitting edema bilateral lower extremities, actually could palpate tibia today. Improving. Plan as above Qualifiers: Laterality: bilateral Qualified Code(s): R60.0 - Localized edema (5) Leg weakness, bilateral Current Visit: Yes Status: Acute Assessment and plan: Continue PT and OT. Patient will be discharged and to remain her for rehabilitation. (6) Tachycardia Current Visit: Yes Status: Resolved Assessment and plan: Patient was placed on metoprolol 25 mg by mouth twice a day blood pressure is well controlled as is rate. (7) Breast cancer in male Current Visit: Yes Status: Resolved Qualifiers: Breast location: unspecified site of breast Laterality: left Qualified Code(s): C50.922 - Malignant neoplasm of unspecified site of left male breast (8) CKD (chronic kidney disease) stage 3, GFR 30-59 ml/min Current Visit: Yes Status: Chronic Assessment and plan: Creatinine is 1.39 today. Baseline for patient. Continue monitor labs Avoid nephrotoxins Pharmacy to dose vancomycin (9) Anticoagulated on Coumadin Current Visit: Yes Status: Chronic Assessment and plan: Patient takes Coumadin due to go PEs after treatment with tamoxifen for breast cancer. Continue all INR and Coumadin. - Time Spent With Patient less than 15 minutes - Subjective Interval history: I assessed this morning at approximately 08 20. I have not a beer late last night and noticed that patient had an elevated temperature. I went ahead and started him on Rocephin 1 g IV and got a chest x-ray. When I returned this morning started antibiotics for it. Patient will not be going to [facility] today. Patient are both aware of situation. Patient reported cough onset yesterday, nonproductive. He does have rhonchi posteriorly with some wheezing at the bases. We will keep him a few more days to monitor. - Constitutional Vitals: Temp Pulse Resp BP Pulse Ox 98.5 F 97 16 116/66 94 02/12/17 15:38 02/12/17 15:38 02/12/17 15:38 02/12/17 15:38 02/12/17 15:38 General appearance: Present: cooperative, A&O X 3, pleasant, no acute distress, answers questions appropriately - Head Head exam: Present: normal inspection - Eye Eye exam: Present: normal appearance, conjuntiva pink - Neck Neck exam general surgery: Present: normal inspection. Absent: lymphadenopathy , tenderness - Respiratory Respiratory exam: Present: decreased breath sounds, rhonchi, wheezes. Absent: respiratory distress, tachypnea - Cardiovascular Cardiovascular exam: Present: RRR, +S1, +S2 - GI/Abdominal GI/Abdominal exam: Present: distended, normal bowel sounds, soft. Absent: tenderness Internal Medicine: Result - Labs CBC & Chem 7: 02/12/17 05:22 02/12/17 05:22 Labs: Short CBC 02/12/17 Range/Units 05:22 WBC 11.3 H (4.3-11.1) K/mcL Hgb 10.1 L (12.9-16.9) g/dL Hct 31.9 L (37.5-50.1) % Plt Count 135 L (140-400) K/mcL Neutrophils # 9.3 H (1.6-8.9) K/mcL BMP 02/12/17 05:22 Sodium 137 Potassium 3.7 Chloride 102 Carbon Dioxide 26 BUN 31 H Creatinine 1.31 H Glucose 111 H Calcium 8.4 L - ABG Interpretation ABG results: PT/INR, D-dimer PT 25.6 Seconds (9.4-12.1) H 02/12/17 05:22 - Impressions Impressions Chest X-Ray 02/11/17 22:30 IMPRESSION: Mild haziness in the upper lung regions suggesting pneumonitis versus developing edema or pneumonia D/ / Andrae Ríos MD / Andrae Ríos MD Interpreting Provider: Andrae Ríos MD Consult Discharge Plan - Plan Referrals: Benny Miller MD [Primary Care Provider] -
[2017-02-12] MEDS ORDERED: Ipratropium/Albuterol Neb 3 ML IH PRN (18:42)
[2017-02-12] MEDS ORDERED: Albuterol 2.5 MG/3 ML NEBULIZER IH PRN (18:42)
[2017-02-12] MEDS: Vancomycin 1,250 MG in D5% in Water 250 ML IVPB SCH (20:38)
[2017-02-12] MEDS: Acetaminophen 325 MG TABLET PO PRN (23:07)
[2017-02-13] MEDS: Furosemide 20 MG/2 ML VIAL IVP SCH (08:59)
[2017-02-13] MEDS: Vancomycin 1,250 MG in D5% in Water 250 ML IVPB SCH ×2 (08:59→22:45)
[2017-02-13] MEDS: Nystatin Cream 15 GM TUBE TP SCH ×2 (09:00→22:06)
[2017-02-13] MEDS: Triamcinolone Acet 0.1% CRM 15 GM TUBE TP SCH ×2 (09:00→22:06)
--- NOTE | 2017-02-13 12:28 | Internal Med Progress Note ---
Date of Encounter: 02/13/17 Time of Encounter: 09:50 - Assessment and plan (1) HCAP (healthcare-associated pneumonia) Current Visit: Yes Status: Acute Assessment and plan: Patient is still receiving vancomycin IV and Zosyn IV. We will continue this when he is discharged to the [facility]. His lungs sound like he is moving air a little bit better today. He has coarse rhonchi and wheezing throughout posteriorly. His reports that his cough is now productive sometimes. I have changed the duo nebs from when necessary to scheduled. Mr. Stone has remained afebrile and his white count is 11.3 today. He will be discharged to [facility] tomorrow with IV therapy and breathing treatments. states that he feels as if he will be well enough to go tomorrow. He will continue PT and OT there as well. Continue telemetry Continue oxygen and titrate as needed to maintain sats greater than 92% Continue antibiotics Pulse ox with vital signs Duo nebs scheduled every 4 hours (2) CHF (congestive heart failure) Current Visit: Yes Status: Acute Assessment and plan: Patient's bilateral lower extremity peripheral edema has greatly improved today. His legs are not as red and shiny anymore and tibias are both palpable bilaterally both patient and state that they are greatly improved. Patient will still need his Lasix. He has had about a 3.5 kg weight loss and is diuresing nicely. He will continue this at the [facility] as well. We will continue telemetry monitoring oxygen and IV Lasix through discharge. Qualifiers: Congestive heart failure type: diastolic Congestive heart failure chronicity: acute Qualified Code(s): I50.31 - Acute diastolic (congestive) heart failure (3) HEARD (dyspnea on exertion) Current Visit: Yes Status: Acute Assessment and plan: Plan as above (4) Lower extremity edema Current Visit: Yes Status: Chronic Assessment and plan: Edema has greatly improved since arrival. Patient and both agree that legs look better than on arrival. His skin is no longer taut and shiny, remaining edema is approximately 1+ nonpitting. Continue Lasix IV Qualifiers: Laterality: bilateral Qualified Code(s): R60.0 - Localized edema (5) Leg weakness, bilateral Current Visit: Yes Status: Acute Assessment and plan: Continue PT and OT Continue diuresis Continue antibiotics for HC AP (6) Tachycardia Current Visit: Yes Status: Resolved Assessment and plan: Resolved. Most likely due to illness (7) Breast cancer in male Current Visit: Yes Status: Resolved Qualifiers: Breast location: unspecified site of breast Laterality: left Qualified Code(s): C50.922 - Malignant neoplasm of unspecified site of left male breast (8) CKD (chronic kidney disease) stage 3, GFR 30-59 ml/min Current Visit: Yes Status: Chronic Assessment and plan: Creatinine remains at patient's baseline. Today is 1.31. We will continue to monitor labs through discharge. 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 INR is 2.3 today. In therapeutic range. - Time Spent With Patient less than 15 minutes - Subjective Interval history: Patient was seen and assessed at about 940 this morning. He remains confused however he does answer some questions appropriately. Last night states that he was seeing a woman on a bicycle in the corner of his room. Patient is alert and awake and knows his name and where he is. He is in good spirits today. - Constitutional Vitals: Temp Pulse Resp BP Pulse Ox 98.3 F 82 18 125/74 98 02/13/17 11:27 02/13/17 11:27 02/13/17 11:27 02/13/17 11:27 02/13/17 11:27 General appearance: Present: cooperative, A&O X 2, pleasant, no acute distress, answers questions appropriately - Head Head exam: Present: normal inspection - Eye Eye exam: Present: normal appearance, conjuntiva pink. Absent: periorbital swelling - ENT ENT exam: Present: mucous membranes moist, normal exam - Neck Neck exam general surgery: Present: normal inspection. Absent: lymphadenopathy , tenderness - Respiratory Respiratory exam: Present: rhonchi, wheezes - Cardiovascular Cardiovascular exam: Present: RRR, +S1, +S2. Absent: diastolic murmur, systolic murmur - GI/Abdominal GI/Abdominal exam: Present: distended, normal bowel sounds, soft. Absent: hepatomegaly, tenderness - Extremities Exam Extremities exam: Present: normal inspection, pedal edema, tenderness, radial pulses palpable and symetrical. Absent: warm - Neurological Exam Neurological exam: Present: alert, altered, no focal deficits. Absent: oriented X3, facial droop, speech deficit Internal Medicine: Result - Labs CBC & Chem 7: 02/12/17 05:22 02/12/17 05:22 - ABG Interpretation ABG results: PT/INR, D-dimer PT 25.6 Seconds (9.4-12.1) H 02/12/17 05:22 Consult Discharge Plan - Plan Referrals: Benny Miller MD [Primary Care Provider] -
[2017-02-13] MEDS: Piperacillin/Tazobactam 3.375 GM in D5% in Water (Mini-Bag+) 100 ML IVPB SCH ×2 (13:09→15:35)
[2017-02-13] MEDS: Ipratropium/Albuterol Neb 3 ML IH SCH ×3 (16:03→23:56)
[2017-02-13] MEDS: *HR* Warfarin 7.5 MG TABLET PO SCH (17:04)
[2017-02-14] MEDS ORDERED: Lidocaine -MPF 1% 2 ML VIAL ID PRN (00:55)
[2017-02-14 01:57] LABS: Basophils % 0.3 %; Eosinophils # 0.1 K/mcL (0.0-0.6); Eosinophils % 1.4 %; Hematocrit 29.7 % (37.5-50.1); Hemoglobin 9.7 g/dL (12.9-16.9); Immature Granulocytes % 0.7 % (0-4); Immature Platelets 1.1 % (1.1-6.1); Lymphocytes # 0.9 K/mcL (0.6-4.6); Lymphocytes % 9.4 %; Mean Corpuscular HGB Conc 32.7 g/dL (31.6-35.5); Mean Corpuscular Hemoglobin 31.6 pg (28.0-33.3); Mean Corpuscular Volume 96.7 fL (83.0-100.0); Mean Platelet Volume 8.8 fL (9.4-12.4); Monocytes # 0.8 K/mcL (0.0-1.3); Monocytes % 8.7 %; Neutrophils # 7.3 K/mcL (1.6-8.9); Platelet Count 165 K/mcL (140-400); Red Blood Count 3.07 M/mcL (4.19-5.50); Red Cell Distribution Width 12.8 % (11.5-14.5); Segmented Neutrophils % 79.5 %
[2017-02-14 02:02] LABS: INR 2.3
[2017-02-14 02:04] LABS: Activated Partial Thrombo Time 36.4 Seconds (26.0-36.0)
[2017-02-14 02:08] LABS: Calcium 8.3 mg/dL (8.6-10.8); Potassium 3.5 mEq/L (3.5-4.5)
[2017-02-14] MEDS: Piperacillin/Tazobactam 3.375 GM in D5% in Water (Mini-Bag+) 100 ML IVPB SCH ×3 (02:51→15:36)
[2017-02-14] MEDS: Ipratropium/Albuterol Neb 3 ML IH SCH ×7 (04:35→23:30)
[2017-02-14] MEDS: Vancomycin 1,250 MG in D5% in Water 250 ML IVPB SCH ×2 (08:15→22:33)
[2017-02-14] MEDS: Furosemide 20 MG/2 ML VIAL IVP SCH (10:03)
[2017-02-14] MEDS: Triamcinolone Acet 0.1% CRM 15 GM TUBE TP SCH ×2 (10:03→21:04)
[2017-02-14] MEDS: Nystatin Cream 15 GM TUBE TP SCH ×2 (10:04→21:03)
[2017-02-14] MEDS: *HR* Warfarin 7.5 MG TABLET PO SCH (17:02)
--- NOTE | 2017-02-14 17:08 | Internal Med Progress Note ---
Date of Encounter: 02/14/17 Time of Encounter: 09:10 - Assessment and plan (1) HCAP (healthcare-associated pneumonia) Current Visit: Yes Status: Acute Assessment and plan: White count has returned to normal, 9.2. He remains afebrile, pulse within normal limits, and normotensive. He has rhonchi and wheezing in posterior lobes. He also says that his cough is sometimes productive. Continue vancomycin and Zosyn Patient scheduled to go to [facility] for rehabilitation. (2) CHF (congestive heart failure) Current Visit: Yes Status: Acute Assessment and plan: Lower extremity edema has almost completely resolved. It is now +1 nonpitting. He says his legs look back to normal, and jokingly calls them skinny. The Lasix has been stopped at this time. We will continue to monitor for edema Qualifiers: Congestive heart failure type: diastolic Congestive heart failure chronicity: acute Qualified Code(s): I50.31 - Acute diastolic (congestive) heart failure (3) HEARD (dyspnea on exertion) Current Visit: Yes Status: Acute Assessment and plan: Patient has remarkably better today. He still requires oxygen at 2 L to maintain room air sats around 93%. He did not appear to be as short of breath with movement of the has been in the past. His lungs have wheezing and rhonchi in the posterior nair. A now says that his cough is productive sometimes. (4) Lower extremity edema Current Visit: Yes Status: Chronic Qualifiers: Laterality: bilateral Qualified Code(s): R60.0 - Localized edema (5) Leg weakness, bilateral Current Visit: Yes Status: Acute Assessment and plan: Patient actually states that he feels better. Today he was able to help move himself up in bed, he is not able to do this the past 2 days. Continue PT and OT snf placement. (6) Tachycardia Current Visit: Yes Status: Resolved Assessment and plan: Rate has been well controlled on metoprolol. Blood pressure is also well controlled. Continue metoprolol [employer] vital signs (7) Breast cancer in male Current Visit: Yes Status: Resolved Assessment and plan: Chronic. Qualifiers: Breast location: unspecified site of breast Laterality: left Qualified Code(s): C50.922 - Malignant neoplasm of unspecified site of left male breast (8) CKD (chronic kidney disease) stage 3, GFR 30-59 ml/min Current Visit: Yes Status: Chronic Assessment and plan: Renal function remains at baseline today, creatinine 1.43. (9) Anticoagulated on Coumadin Current Visit: Yes Status: Chronic Assessment and plan: INR remains therapeutic today at 2.3. Continue Coumadin and INR/PT (10) Abdominal distension (gaseous) Current Visit: Yes Status: Acute Assessment and plan: Patient's abdomen has fluctuated greatly over the past few days. It is been soft every day. Today it was firm and more distended than normal. Patient states that he has a lot of gas. Abdomen is nontender to palpation patient denies any pain or cramping. He has had 3 episodes of diarrhea today per staff. Specimen is been sent for C. difficile culture. I did a KUB which showed gaseous distention of the colon measuring up to 10.5 cm, no small bowel obstruction, stable cardio pulmonary status including cardiomegaly, by basilar opacities, bilateral effusions, and mild edema. Patient is nothing by mouth and a 16-Marshallese NG tube was inserted into the left nares. Placement verified by x-ray. He will be placed to low wall suction for decompression. Repeat x-ray in the morning. - Subjective Interval history: Patient was seen and evaluated early this morning. is at bedside. She states that his hallucinations seem to have improved and last night he admitted that he sees things on shelves and just simply thinks that there something else. He is alert and oriented 3 today he answers all questions appropriately. He also appears to be stronger than he has in previous days. He is able to pull himself up to sit up so I can listen to his lungs, he has not been able to do this in the past days. His edema and bilateral lower extremities is better is 1+ and nonpitting. He states his legs are back to normal. He was ready to go to the residential this morning when I noticed that his abdomen was very distended and firm. It has been distended the past few days but soft patient was still having bowel movements, and he denies any pain. Today he says that he just has a lot of gas. After questioning nursing staff he has had multiple episodes of diarrhea today. Stool specimen to be sent for C. difficile. His bowel sounds are still present in all 4 quadrants. Again it is nontender to palpation and he denies any pain whatsoever. Patient was treated at [facility] today. At some point last night after a left they decided that they wanted to go to [facility] instead. The clinical social work therapist made connections and patient was to go to [facility] today, however we are monitoring his abdomen when that is resolved he will go to [facility]. - Constitutional Vitals: Temp Pulse Resp BP Pulse Ox 98.0 F 84 18 139/80 96 02/14/17 15:23 02/14/17 15:23 02/14/17 15:50 02/14/17 15:23 02/14/17 15:50 General appearance: Present: cooperative, A&O X 2, pleasant, no acute distress, answers questions appropriately - Head Head exam: Present: normal inspection - Eye Eye exam: Present: normal appearance, conjuntiva pink - ENT ENT exam: Present: mucous membranes moist, normal exam, normal external ear exam - Neck Neck exam general surgery: Present: normal inspection. Absent: lymphadenopathy , tenderness - Respiratory Respiratory exam: Present: decreased breath sounds, rhonchi, wheezes. Absent: respiratory distress - Cardiovascular Cardiovascular exam: Present: RRR, +S1, +S2 - GI/Abdominal GI/Abdominal exam: Present: distended, firm, normal bowel sounds. Absent: tenderness - Extremities Exam Extremities exam: Present: normal capillary refill, pedal edema, warm, radial pulses palpable and symetrical. Absent: mottling, tenderness - Neurological Exam Neurological exam: Present: alert, oriented X3, no focal deficits, strengths equal and symetr throughout. Absent: facial droop, speech deficit Internal Medicine: Result - Labs CBC & Chem 7: 02/14/17 01:48 02/14/17 01:48 Labs: Short CBC 02/14/17 Range/Units 01:48 WBC 9.2 (4.3-11.1) K/mcL Hgb 9.7 L (12.9-16.9) g/dL Hct 29.7 L (37.5-50.1) % Plt Count 165 (140-400) K/mcL Neutrophils # 7.3 (1.6-8.9) K/mcL BMP 02/14/17 01:48 Sodium 135 L Potassium 3.5 Chloride 99 Carbon Dioxide 26 BUN 26 Creatinine 1.43 H Glucose 138 H Calcium 8.3 L - ABG Interpretation ABG results: PT/INR, D-dimer PT 25.0 Seconds (9.4-12.1) H 02/14/17 01:48 - Impressions Impressions Chest/Abdomen X-ray 02/14/17 10:42 IMPRESSION: 1. Gaseous distention of the colon measuring up to 10.5 cm as described. 2. No radiographic evidence of small bowel obstruction. 3. Stable cardiopulmonary status since 02/11/2017, including cardiomegaly, bibasilar opacities, bilateral effusions, and mild edema. D/ / 02/14/2017 14:34:45 Alka Hinson MD / [facility] Interpreting Provider: Alka Hinson MD Consult Discharge Plan - Plan Referrals: Benny Miller MD [Primary Care Provider] -
[2017-02-14] MEDS ORDERED: Pantoprazole 40 MG VIAL IVP ONE (20:20)
[2017-02-15] MEDS: *HR* Metoprolol 5 MG/5 ML VIAL IVP SCH ×5 (00:06→23:49)
[2017-02-15] MEDS: Piperacillin/Tazobactam 3.375 GM in D5% in Water (Mini-Bag+) 100 ML IVPB SCH ×4 (00:06→23:50)
[2017-02-15 03:14] LABS: Basophils % 0.5 %; Eosinophils # 0.3 K/mcL (0.0-0.6); Eosinophils % 3.9 %; Hemoglobin 9.4 g/dL (12.9-16.9); Immature Granulocytes % 0.4 % (0-4); Lymphocytes # 0.9 K/mcL (0.6-4.6); Lymphocytes % 11.6 %; Mean Corpuscular HGB Conc 32.4 g/dL (31.6-35.5); Mean Corpuscular Hemoglobin 31.4 pg (28.0-33.3); Mean Platelet Volume 8.8 fL (9.4-12.4); Monocytes # 0.7 K/mcL (0.0-1.3); Monocytes % 9.1 %; Neutrophils # 5.9 K/mcL (1.6-8.9); Platelet Count 176 K/mcL (140-400); Red Blood Count 2.99 M/mcL (4.19-5.50); Red Cell Distribution Width 12.6 % (11.5-14.5); Segmented Neutrophils % 74.5 %
[2017-02-15 03:24] LABS: BUN/Creatinine Ratio 19 (6-26); Blood Urea Nitrogen 24 mg/dL (8-26); Calcium 8.5 mg/dL (8.6-10.8); Carbon Dioxide 30 mEq/L (19-29); Chloride 100 mEq/L (98-109); Glucose 124 mg/dL (70-99); Osmolality,Calculated 289 (280-300); Potassium 3.6 mEq/L (3.5-4.5); Sodium 137 mEq/L (136-145); eGFR For African Americans > 60 (> 60); eGFR For Non-African Americans 54 (> 60)
[2017-02-15] MEDS: Ipratropium/Albuterol Neb 3 ML IH SCH ×6 (04:37→23:04)
[2017-02-15] MEDS: Nystatin Cream 15 GM TUBE TP SCH ×2 (09:30→21:49)
[2017-02-15] MEDS: Pantoprazole 40 MG VIAL IVP SCH (09:30)
[2017-02-15] MEDS: Vancomycin 1,250 MG in D5% in Water 250 ML IVPB SCH ×2 (09:30→21:48)
[2017-02-15] MEDS: Triamcinolone Acet 0.1% CRM 15 GM TUBE TP SCH ×2 (09:31→21:49)
[2017-02-15] MEDS: *HR* Warfarin 7.5 MG TABLET PO SCH (16:21)
--- NOTE | 2017-02-15 17:29 | Internal Med Progress Note ---
Date of Encounter: 02/15/17 Time of Encounter: 09:15 - Assessment and plan (1) HCAP (healthcare-associated pneumonia) Current Visit: Yes Status: Acute Assessment and plan: Patient is still being treated for age With vancomycin and Zosyn. His white count today is within normal limits at 8.0. He remains afebrile and normotensive. No tachycardia. He still wearing supple no oxygen at 2 L to maintain his sats above 92%. His lungs have rhonchi and wheezing posteriorly. His respirations are easy and unlabored. Continue antibiotics Supplemental oxygen to maintain sats greater than 92% Monitor vitals Monitor labs Nebulizer treatments as needed Mucinex for cough (2) CHF (congestive heart failure) Current Visit: Yes Status: Acute Assessment and plan: Lower extremity edema has resolved. He is euvolemic at this time. Lasix has been stopped. We will continue to monitor for edema Qualifiers: Congestive heart failure type: diastolic Congestive heart failure chronicity: acute Qualified Code(s): I50.31 - Acute diastolic (congestive) heart failure (3) HEARD (dyspnea on exertion) Current Visit: Yes Status: Acute Assessment and plan: Plan as above. Supplemental oxygen PT and OT Antibiotics Nebulizer treatments as needed (4) Lower extremity edema Current Visit: Yes Status: Resolved Qualifiers: Laterality: bilateral Qualified Code(s): R60.0 - Localized edema (5) Leg weakness, bilateral Current Visit: Yes Status: Acute Assessment and plan: Patient appears to be a little more weak today and required more assistance to set up so he did listen to his lungs. He will continue PT and OT this week. He will go to her [facility] for rehabilitation. (6) Tachycardia Current Visit: Yes Status: Resolved (7) Breast cancer in male Current Visit: Yes Status: Resolved Assessment and plan: Chronic. Patient takes tamoxifen. 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 Monitor PT and INR. Qualifiers: Breast location: unspecified site of breast Laterality: left Qualified Code(s): C50.922 - Malignant neoplasm of unspecified site of left male breast (8) CKD (chronic kidney disease) stage 3, GFR 30-59 ml/min Current Visit: Yes Status: Chronic Assessment and plan: Renal function has improved. Creatinine is 1.28 and GFR is 54. Lasix has been stopped Patient is getting IV fluids at 50 ML's per hour due to being nothing by mouth. Will continue to monitor renal function Avoid nephrotoxins Pharmacy is dosing vancomycin. (9) Anticoagulated on Coumadin Current Visit: Yes Status: Chronic Assessment and plan: Monitoring PT INR. Therapeutic at 2.3. (10) Abdominal distension (gaseous) Current Visit: Yes Status: Acute Assessment and plan: KUB this morning shows persisting gaseous distention of the left colon but decreased dilatation of the transverse and right colon. I spoke with radiologist who read this film. He states that the right and transverse colons are not distended today left colon has slightly increased in diameter at 10.5 today. NG tube remains in place to low wall suction Protonix 40 mg IV push daily IV fluids since patient is nothing by mouth Repeat AAS in the morning - Time Spent With Patient 25 - 35 minutes - Subjective Interval history: Patient was seen and examined this morning at approximately 9:15. His is at his bedside. His abdomen is slightly less distended and soft. Nursing reports that he has not had a bowel movement yet today. We have not been able to send a specimen for C. difficile culture. Patient had KUB this morning, showed persistent gaseous distention of the left colon but decreased dilation of the transverse and right colon. I called the radiologist and spoke with him personally. He said that the right colon and transverse colon are not distended at all in the left colon has increased to 10.5. NG tube remains in place to low wall suction. He is getting Protonix 40 mg IV push every morning and he is nothing by mouth, IV fluids 0.9 normal saline at 75 miles per hour. We will watch his fluid status. Patient remains on IV antibiotics for pneumonia. I have ordered an acute abdominal series for the morning to reassess bowel status. If it has improved, hopefully patient will be able to go to the snf tomorrow or Thursday. I have encouraged patient for the last 2 days to get up at the bedside chair. - Constitutional Vitals: Temp Pulse Resp BP Pulse Ox 97.8 F 79 16 135/82 93 02/15/17 14:55 02/15/17 14:55 02/15/17 16:53 02/15/17 14:55 02/15/17 16:53 General appearance: Present: cooperative, A&O X 2, pleasant, no acute distress, answers questions appropriately - Head Head exam: Present: normal inspection - Eye Eye exam: Present: normal appearance - ENT ENT exam: Present: mucous membranes moist, normal exam - Neck Neck exam general surgery: Present: normal inspection. Absent: lymphadenopathy , tenderness - Respiratory Respiratory exam: Present: decreased breath sounds, rhonchi, wheezes - Cardiovascular Cardiovascular exam: Present: RRR, +S1, +S2. Absent: diastolic murmur, systolic murmur - GI/Abdominal GI/Abdominal exam: Present: distended, normal bowel sounds, soft. Absent: guarding, tenderness - Extremities Exam Extremities exam: Present: normal inspection, warm, radial pulses palpable and symetrical. Absent: pedal edema, tenderness - Neurological Exam Neurological exam: Present: alert, altered, no focal deficits, strengths equal and symetr throughout Additional comments: The shunt appears to be weaker today, requires more assistance to sit up secondary to his lungs. Internal Medicine: Result - Labs CBC & Chem 7: 02/15/17 03:05 02/15/17 03:05 Labs: Short CBC 02/15/17 Range/Units 03:05 WBC 8.0 (4.3-11.1) K/mcL Hgb 9.4 L (12.9-16.9) g/dL Hct 29.0 L (37.5-50.1) % Plt Count 176 (140-400) K/mcL Neutrophils # 5.9 (1.6-8.9) K/mcL BMP 02/15/17 03:05 Sodium 137 Potassium 3.6 Chloride 100 Carbon Dioxide 30 H BUN 24 Creatinine 1.28 H Glucose 124 H Calcium 8.5 L - ABG Interpretation ABG results: PT/INR, D-dimer PT 25.0 Seconds (9.4-12.1) H 02/14/17 01:48 - Impressions Impressions KUB X-Ray 02/14/17 16:14 IMPRESSION: 1. Nasogastric tube tip terminates in the proximal stomach. The side port is at the GE junction. Recommend advancement by 3 cm for more optimal positioning. 2. Redemonstration of gaseous distention of the bowel. D/ / 02/14/2017 17:09:30 Alka Hinson MD / [facility] Interpreting Provider: Alka Hinson MD X-Ray 02/15/17 08:02 IMPRESSION: Persistent gaseous distension of the left colon but decreased dilatation of the transverse and right colon. D/ / Rubén Myers MD / Rubén Myers MD Interpreting Provider: Rubén Myers MD Consult Discharge Plan - Plan Referrals: Benny Miller MD [Primary Care Provider] -
[2017-02-15] MEDS ORDERED: 0.9 % Sodium Chloride 1,000 ML IVC SCH (17:45)
[2017-02-15] MEDS: 0.9 % Sodium Chloride 1,000 ML IVC SCH (20:12)
[2017-02-16] MEDS: Triamcinolone Acet 0.1% CRM 15 GM TUBE TP SCH ×3 (02:41→21:49)
[2017-02-16] MEDS: Nystatin Cream 15 GM TUBE TP SCH ×3 (02:44→21:49)
[2017-02-16] MEDS ORDERED: *HR* LORazepam 2 MG/ML VIAL IVP ONE (04:25)
[2017-02-16] MEDS: Ipratropium/Albuterol Neb 3 ML IH SCH ×5 (04:34→20:24)
[2017-02-16 05:36] LABS: Basophils % 0.5 %; Eosinophils # 0.4 K/mcL (0.0-0.6); Eosinophils % 5.3 %; Hematocrit 30.2 % (37.5-50.1); Hemoglobin 9.6 g/dL (12.9-16.9); Immature Granulocytes % 0.6 % (0-4); Lymphocytes # 0.9 K/mcL (0.6-4.6); Lymphocytes % 11.4 %; Mean Corpuscular HGB Conc 31.8 g/dL (31.6-35.5); Mean Corpuscular Volume 97.4 fL (83.0-100.0); Mean Platelet Volume 8.7 fL (9.4-12.4); Monocytes # 0.8 K/mcL (0.0-1.3); Monocytes % 9.3 %; Neutrophils # 5.9 K/mcL (1.6-8.9); Platelet Count 196 K/mcL (140-400); Red Cell Distribution Width 12.9 % (11.5-14.5); Segmented Neutrophils % 72.9 %
[2017-02-16 05:39] LABS: Prothrombin Time 21.5 Seconds (9.4-12.1)
[2017-02-16 05:47] LABS: Calcium 8.7 mg/dL (8.6-10.8); Potassium 3.6 mEq/L (3.5-4.5)
[2017-02-16] MEDS: *HR* Metoprolol 5 MG/5 ML VIAL IVP SCH ×4 (06:21→23:56)
[2017-02-16] MEDS: Pantoprazole 40 MG VIAL IVP SCH (08:37)
[2017-02-16] MEDS: Piperacillin/Tazobactam 3.375 GM in D5% in Water (Mini-Bag+) 100 ML IVPB SCH ×3 (08:37→23:57)
[2017-02-16] MEDS: Vancomycin 1,250 MG in D5% in Water 250 ML IVPB SCH ×2 (08:39→21:48)
--- NOTE | 2017-02-16 15:16 | Internal Med Progress Note ---
Date of Encounter: 02/16/17 Time of Encounter: 09:00 - Assessment and plan (1) HCAP (healthcare-associated pneumonia) Current Visit: Yes Status: Acute Assessment and plan: Patient still being treated with Vanco and Zosyn. Per AAS, there is bibasilar atelectasis on the left worse than right. Patient was requiring oxygen to maintain his oxygen saturations. This will be continued at the halfway Vanco and Zosyn will be continued at the halfway as well. Today he had coarse rhonchi, wheezing seems to have resolved His white count is 8.1 today. He remains afebrile and vital signs within normal limits. Continue antibiotics. Prescriptions have been completed and have been faxed to [facility]. Continue supplemental oxygen. Monitor vital signs Monitor labs Nebulizer treatments as needed Mucinex for cough (2) CHF (congestive heart failure) Current Visit: Yes Status: Acute Assessment and plan: Lower extremity edema has resolved. He is euvolemic at this time. Lasix has been stopped. We will continue to monitor for edema Continue to monitor renal function. Qualifiers: Congestive heart failure type: diastolic Congestive heart failure chronicity: acute Qualified Code(s): I50.31 - Acute diastolic (congestive) heart failure (3) Lower extremity edema Current Visit: Yes Status: Resolved Assessment and plan: Edema is resolved. Continue to monitor fluid status. Qualifiers: Laterality: bilateral Qualified Code(s): R60.0 - Localized edema (4) Leg weakness, bilateral Current Visit: Yes Status: Acute Assessment and plan: Continue PT and OT Patient to go to [facility] in [place] (5) Tachycardia Current Visit: Yes Status: Resolved (6) Breast cancer in male Current Visit: Yes Status: Resolved Assessment and plan: Chronic. Patient takes tamoxifen. 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 Monitor PT and INR. Qualifiers: Breast location: unspecified site of breast Laterality: left Qualified Code(s): C50.922 - Malignant neoplasm of unspecified site of left male breast (7) CKD (chronic kidney disease) stage 3, GFR 30-59 ml/min Current Visit: Yes Status: Chronic Assessment and plan: Creat and 1.40 today. Continue to monitor Labs in the morning Avoid nephrotoxins Pharmacy to dose vancomycin (8) Anticoagulated on Coumadin Current Visit: Yes Status: Chronic Assessment and plan: Chronic. Patient had PEs and DVT after breast cancer and starting tamoxifen. Continue at [facility]. INR has been therapeutic. (9) Abdominal distension (gaseous) Current Visit: Yes Status: Acute Assessment and plan: Repeat acute abdominal series today showed a decrease in the distention of the descending colon by approximately 1 cm since the prior study., I spoke with the radiologist this morning who measured the largest portion of the descending colon at 7.8 cm. It was 10.5 on Thursday. There is no distention remaining intertransverse or right colon. The NG tube has been removed, he is tolerating clear liquids and will be advanced to full liquids at dinnertime. Abdomen is rounded and soft with hyperactive bowel sounds in all 4 quadrants. Staff reports that he has had several bowel movements today, prior to and after tap water enema administration. C. difficile was negative White count 8.1. ECF is willing to take him as long as he can tolerate foods. - Time Spent With Patient less than 15 minutes - Subjective Interval history: Patient was seen and examined this morning at about 9 AM. His remains as bedside again today. This morning's acute abdominal serious showed persistent mild distention of the bowel and bibasilar atelectasis or infant infiltrates left worse than right. I did speak with the radiologist to get a comparison of prior film to this film. She says that the left descending colon is approximately 1 cm less distended than previous. She says there is no distention to the transverse and right. Patient's abdomen is still distended, however it is soft, it remains nontender with active bowel sounds.. The NG tube was DC'd and he was given a clear liquid diet. I spoke with Dr. Carpenter by phone for recommendations. He suggested clear liquids, DC the NG tube, and tap water enemas at least 2. Nurse reports that patient has external hemorrhoids with enema administration. His abdomen is rounded and soft after enemas, hyperactive bowel sounds heard. He has had several bowel movements, both prior to and after enema administration. He will advance his diet to full liquids tonight for dinner. die try out worker said that ECF would prefer that he be able to tolerate foods prior to discharge. He should be ready for discharge in the morning. He remains slightly confused however at times he does answer questions appropriately. He is hard of hearing and does not hear a lot of things that are asked of him. remains at bedside. - Constitutional Vitals: Temp Pulse Resp BP Pulse Ox 98.2 F 76 16 147/77 96 02/16/17 11:35 02/16/17 11:35 02/16/17 11:35 02/16/17 11:35 02/16/17 11:35 General appearance: Present: cooperative, A&O X 2, pleasant, no acute distress, answers questions appropriately Internal Medicine: Result - Labs CBC & Chem 7: 02/16/17 05:15 02/16/17 05:15 Labs: Short CBC 02/16/17 Range/Units 05:15 WBC 8.1 (4.3-11.1) K/mcL Hgb 9.6 L (12.9-16.9) g/dL Hct 30.2 L (37.5-50.1) % Plt Count 196 (140-400) K/mcL Neutrophils # 5.9 (1.6-8.9) K/mcL BMP 02/16/17 05:15 Sodium 140 Potassium 3.6 Chloride 104 Carbon Dioxide 27 BUN 23 Creatinine 1.40 H Glucose 117 H Calcium 8.7 - ABG Interpretation ABG results: PT/INR, D-dimer PT 21.5 Seconds (9.4-12.1) H 02/16/17 05:15 - Impressions Impressions Chest/Abdomen X-ray 02/16/17 05:00 IMPRESSION: 1. The NG tube tip is in the fundus of the stomach. The proximal port is in the distal esophagus/gastroesophageal junction. This should be advanced. 2. Decrease of the distention of the descending colon by approximately 1 cm since the prior study. 3. Bibasilar atelectasis or infiltrates, left worse than right. D/ / 02/16/2017 08:20:06 Grace Mcgrath MD / [facility] Interpreting Provider: Grace Mcgrath MD Consult Discharge Plan - Plan Referrals: Benny Miller MD [Primary Care Provider] -
[2017-02-16] MEDS: *HR* Warfarin 7.5 MG TABLET PO SCH (17:00)
--- NOTE | 2017-02-16 17:11 | Internal Med Progress Note ---
Date of Encounter: 02/16/17 Time of Encounter: 08:45 - Assessment and plan (1) HCAP (healthcare-associated pneumonia) Current Visit: Yes Status: Acute Assessment and plan: Patient still being treated with Vanco and Zosyn. Per AAS, there is bibasilar atelectasis on the left worse than right. Patient was requiring oxygen to maintain his oxygen saturations. This will be continued at the retirement Vanco and Zosyn will be continued at the retirement as well. Today he had coarse rhonchi, wheezing seems to have resolved His white count is 8.1 today. He remains afebrile and vital signs within normal limits. (2) CHF (congestive heart failure) Current Visit: Yes Status: Acute Assessment and plan: Lower extremity edema has resolved. He is euvolemic at this time. Lasix has been stopped. We will continue to monitor for edema Qualifiers: Congestive heart failure type: diastolic Congestive heart failure chronicity: acute Qualified Code(s): I50.31 - Acute diastolic (congestive) heart failure (3) HEARD (dyspnea on exertion) Current Visit: Yes Status: Acute (4) Lower extremity edema Current Visit: Yes Status: Resolved Qualifiers: Laterality: bilateral Qualified Code(s): R60.0 - Localized edema (5) Leg weakness, bilateral Current Visit: Yes Status: Acute (6) Tachycardia Current Visit: Yes Status: Resolved (7) Breast cancer in male Current Visit: Yes Status: Resolved Qualifiers: Breast location: unspecified site of breast Laterality: left Qualified Code(s): C50.922 - Malignant neoplasm of unspecified site of left male breast (8) CKD (chronic kidney disease) stage 3, GFR 30-59 ml/min Current Visit: Yes Status: Chronic (9) Anticoagulated on Coumadin Current Visit: Yes Status: Chronic (10) Abdominal distension (gaseous) Current Visit: Yes Status: Acute - Subjective Interval history: Pt resting quietly in bed at bedside. He again today denies any abdominal pain or tenderness. I spoke with Dr. Carpenter today regarding recommendations. The NG tube was removed, patient was given a clear liquid diet, we will advance tonight. delivery sales worker says that retirement would appreciate it if patient could handle regular food prior to being discharged. It is also recommended that he be given tap water enemas at least 2. Staff reports that he has had 3- 4 bowel movements today, 2 diarrhea two loose. Patient is tolerating clear liquids, will advance him to full liquids for dinner. His abdomen remained soft , rounded, bowel sounds hyperactive in all quadrants. Patient remains slightly confused. He does answer some questions appropriately , however, he points at things that are not there and also interjects things that are not pertinent to the story. Today he was a little bit verbally aggressive with his . ECF is ready to take him. He should be ready for discharge in the morning. - Constitutional Vitals: Temp Pulse Resp BP Pulse Ox 98.0 F 88 16 159/68 94 02/16/17 15:18 02/16/17 15:18 02/16/17 15:18 02/16/17 15:18 02/16/17 15:18 General appearance: Present: cooperative, A&O X 2, pleasant, no acute distress, answers questions appropriately - Head Head exam: Present: normal inspection - Eye Eye exam: Present: normal appearance - ENT ENT exam: Present: mucous membranes moist, normal exam - Neck Neck exam general surgery: Present: normal inspection. Absent: lymphadenopathy , tenderness - Respiratory Respiratory exam: Present: decreased breath sounds, rhonchi, wheezes. Absent: respiratory distress, tachypnea - Cardiovascular Cardiovascular exam: Present: RRR, +S1, +S2. Absent: diastolic murmur, systolic murmur - GI/Abdominal GI/Abdominal exam: Present: distended, hyperactive bowel sounds, soft. Absent: rigid, tenderness - Extremities Exam Extremities exam: Present: normal inspection, radial pulses palpable and symetrical. Absent: pedal edema, tenderness - Neurological Exam Neurological exam: Present: alert, altered. Absent: oriented X3, facial droop, speech deficit Internal Medicine: Result - Labs CBC & Chem 7: 02/16/17 05:15 02/16/17 05:15 Labs: Short CBC 02/16/17 Range/Units 05:15 WBC 8.1 (4.3-11.1) K/mcL Hgb 9.6 L (12.9-16.9) g/dL Hct 30.2 L (37.5-50.1) % Plt Count 196 (140-400) K/mcL Neutrophils # 5.9 (1.6-8.9) K/mcL BMP 02/16/17 05:15 Sodium 140 Potassium 3.6 Chloride 104 Carbon Dioxide 27 BUN 23 Creatinine 1.40 H Glucose 117 H Calcium 8.7 - ABG Interpretation ABG results: PT/INR, D-dimer PT 21.5 Seconds (9.4-12.1) H 02/16/17 05:15 - Impressions Impressions Chest/Abdomen X-ray 02/16/17 05:00 IMPRESSION: 1. The NG tube tip is in the fundus of the stomach. The proximal port is in the distal esophagus/gastroesophageal junction. This should be advanced. 2. Decrease of the distention of the descending colon by approximately 1 cm since the prior study. 3. Bibasilar atelectasis or infiltrates, left worse than right. D/ / 02/16/2017 08:20:06 Grace Mcgrath MD / [facility] Interpreting Provider: Grace Mcgrath MD Consult Discharge Plan - Plan Referrals: Benny Miller MD [Primary Care Provider] -
[2017-02-17] MEDS: Ipratropium/Albuterol Neb 3 ML IH SCH ×7 (00:14→23:34)
[2017-02-17] MEDS: 0.9 % Sodium Chloride 1,000 ML IVC SCH ×3 (01:57→17:31)
[2017-02-17 03:24] LABS: ABG Base Excess 5.1 mEq/L (-2.0 to 3.0); ABG Oxygen Saturation 97 % (95-98); ABG PCO2 39 mmHg (35-45); ABG PH 7.48 pH Units (7.32-7.45); ABG PO2 80 mmHg (85-104); ABG TCO2 30.2 mEq/L (20-26)
[2017-02-17 03:25] LABS: Blood Gas FiO2 28 %
[2017-02-17] MEDS: Furosemide 40 MG/4 ML VIAL IVP SCH ×2 (04:36→09:01)
[2017-02-17] MEDS: *HR* Metoprolol 5 MG/5 ML VIAL IVP SCH ×2 (05:45→11:46)
[2017-02-17] MEDS: Azithromycin 500 MG in D5% in Water 250 ML IVPB SCH (05:45)
[2017-02-17] MEDS: Vancomycin 1,250 MG in D5% in Water 250 ML IVPB SCH ×2 (08:59→20:57)
[2017-02-17] MEDS: Triamcinolone Acet 0.1% CRM 15 GM TUBE TP SCH ×2 (09:00→20:58)
[2017-02-17] MEDS: Nystatin Cream 15 GM TUBE TP SCH ×2 (09:00→20:57)
[2017-02-17] MEDS: Pantoprazole 40 MG VIAL IVP SCH (09:01)
[2017-02-17] MEDS: Piperacillin/Tazobactam 3.375 GM in D5% in Water (Mini-Bag+) 100 ML IVPB SCH ×2 (11:33→17:30)
[2017-02-17] MEDS ORDERED: *HR* Metoprolol 5 MG/5 ML VIAL IVP PRN (15:29)
[2017-02-17] MEDS: *HR* Warfarin 7.5 MG TABLET PO SCH (17:31)
[2017-02-17 19:03] LABS: Bilirubin,Urine Negative (Negative); Blood,Urine Negative (Negative); Clarity,Urine Clear (Clear); Color,Urine Yellow (Yellow); Glucose,Urine (UA) Normal (Normal); Ketones,Urine Negative (Negative); Leukocyte Esterase,Urine Negative (Negative); Nitrite,Urine Negative (Negative); Protein,Urine Negative (Neg-Trace); Specific Gravity,Urine 1.017 (1.010-1.025); Urobilinogen,Urine Normal (Normal)
--- NOTE | 2017-02-17 19:11 | Internal Med Progress Note ---
Date of Encounter: 02/17/17 Time of Encounter: 17:00 - Assessment and plan (1) Confusion Current Visit: Yes Status: Acute Assessment and plan: When I spoke to him, he was aware of what year it was and who the president was. It took him several minutes to recall where he was at. His initially became upset but upon further investigation, states that the patient has become increasingly more confused over the past couple weeks especially in the evenings. Unclear causation at this time possibly new onset of dementia although seems rather insidious for dementia presentation. We will continue to investigate. Repeat urinalysis negative. He does not appear to be septic. Blood cultures negative. No lactic acidosis. We will continue to monitor and evaluate his mentation. (2) HCAP (healthcare-associated pneumonia) Current Visit: Yes Status: Acute Assessment and plan: Repeat imaging consistent with development of pneumonia to his bilateral upper lobes. On examination, decreased breath sounds noted to right lower lobe, will repeat acute abdominal series. We will continue vancomycin and Zosyn. Sputum culture ordered, will add mucolytics. Continue supplemental oxygenation as needed. Unknown causative organism however treating for Pseudomonas. ITS Impressions Chest X-Ray 02/11/17 22:30 IMPRESSION: Mild haziness in the upper lung regions suggesting pneumonitis versus developing edema or pneumonia D/ / Andrae Ríos MD / Andrae Ríos MD Interpreting Provider: Andrae Ríos MD Electronically igned by Andrae Ríos MD on 02/11/2017 22:49:50 Chest/Abdomen X-ray 02/14/17 10:42 IMPRESSION: 1. Gaseous distention of the colon measuring up to 10.5 cm as described. 2. No radiographic evidence of small bowel obstruction. 3. Stable cardiopulmonary status since 02/11/2017, including cardiomegaly, bibasilar opacities, bilateral effusions, and mild edema. D/ / 02/14/2017 14:34:45 Alka Hinson MD / [facility] Interpreting Provider: Alka Hinson MD Chest/Abdomen X-ray 02/16/17 05:00 IMPRESSION: 1. The NG tube tip is in the fundus of the stomach. The proximal port is in the distal esophagus/gastroesophageal junction. This should be advanced. 2. Decrease of the distention of the descending colon by approximately 1 cm since the prior study. 3. Bibasilar atelectasis or infiltrates, left worse than right. D/ / 02/16/2017 08:20:06 Grace Mcgrath MD / [facility] Interpreting Provider: Grace Mcgrath MD Chest X-Ray 02/17/17 02:49 IMPRESSION: Slight Increased haziness in bilateral upper lungs, left greater than right, nonspecific, could represent developing edema or pneumonia. D/ / Sloan Graham MD / Sloan Graham MD Interpreting Provider: Sloan Graham MD (3) Abdominal distension (gaseous) Current Visit: Yes Status: Acute Assessment and plan: Patient required an NG tube that was removed yesterday. He was then given clear liquids and advance to full liquids. He tolerated them well. His abdomen however because become more distended and he has become less flatulence. Hypoactive bowel sounds noted in all 4 quadrants. Acute abdominal series ordered at this time to rule out a small bowel obstruction. If it is unremarkable, will advance his diet. He currently denies abdominal pain. (4) CHF (congestive heart failure) Current Visit: Yes Status: Acute Assessment and plan: Euvolemic on examination. Holding Lasix at this time. Renal function and consistent with his baseline. If able to advance his diet, will initiate fluid and sodium restricted diet. Acute abdominal series pending. (5) CKD (chronic kidney disease) stage 3, GFR 30-59 ml/min Current Visit: Yes Status: Chronic Assessment and plan: Stable and consistent with his baseline. We will continue to trend. (6) Acute respiratory failure Current Visit: Yes Status: Acute Assessment and plan: Currently requiring supplemental oxygenation, no oxygen at home. He denies shortness of breath above his norm. Decreased breath sounds noted to right lower lobe, imaging pending. We will wean as he tolerates. Qualifiers: Respiratory failure complication: hypoxia Qualified Code(s): J96.01 - Acute respiratory failure with hypoxia (7) Lower extremity edema Current Visit: Yes Status: Resolved Qualifiers: Laterality: bilateral Qualified Code(s): R60.0 - Localized edema (8) HEARD (dyspnea on exertion) Current Visit: Yes Status: Acute Assessment and plan: Patient is listless and weak. He required the assistance of myself and his to sit up in bed so I can listen to his back. Continue supplemental oxygenation. He is euvolemic. Plan is to transfer him to [facility] when he is medically stable however need to rule out bowel obstruction prior to transport. We will add mucolytics. (9) Leg weakness, bilateral Current Visit: Yes Status: Acute Assessment and plan: Continue PT and OT. Patient to go to [facility] in [place] when medically cleared. Acute abdominal series pending to rule out a small bowel obstruction. He is also on supplemental oxygenation and is being treated for pneumonia. Not fit to be transferred at this time. (10) Tachycardia Current Visit: Yes Status: Resolved Assessment and plan: Rate has been well controlled on metoprolol. (11) Breast cancer in male Current Visit: Yes Status: Resolved Assessment and plan: Chronic. Patient takes tamoxifen. 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 Monitor PT and INR. (12) Anticoagulated on Coumadin Current Visit: Yes Status: Chronic Assessment and plan: Chronic. Patient had PEs and DVT after breast cancer and starting tamoxifen. INR therapeutic; will trend (13) Stage II pressure ulcer of buttock Current Visit: Yes Status: Chronic Assessment and plan: Present on admission. Continue Allevyn Qualifiers: Laterality: unspecified laterality Qualified Code(s): L89.302 - Pressure ulcer of unspecified buttock, stage 2 - Time Spent With Patient Greater than 35 minutes (pt and with many questions) - Subjective Interval history: Patient seen and examined. On examination, patient is sitting upright in bed conversing with his . Patient stating he wants "real food." He denies pain at this time. He denies shortness of breath above his norm. He is aware of what year it is and he is aware of is a president is however he was unable to tell me where he was at that was after several minutes of conversation able to remember that he is at [facility]. He states he has been flatulent but not as much as he has in the past. His is concerned that he continues to become confused which is worsened at night and she is also confused that he is extremely weak. - Constitutional Vitals: Temp Pulse Resp BP Pulse Ox 98.9 F 80 14 113/68 96 02/17/17 15:39 02/17/17 15:39 02/17/17 16:47 02/17/17 15:39 02/17/17 16:47 General appearance: Present: cooperative, A&O X 2, pleasant, no acute distress, answers questions appropriately (when given enough time) - Head Head exam: Present: atraumatic, normocephalic - Eye Eye exam: Present: EOMI, PERRL, conjuntiva pink, sclera anicteric Pupils: Present: PERRL - Neck Neck exam general surgery: Present: supple, trachea midline. Absent: lymphadenopathy - Respiratory Respiratory exam: Present: decreased breath sounds, rhonchi (RLL). Absent: accessory muscle use, rales, respiratory distress, wheezes - Cardiovascular Cardiovascular exam: Present: RRR, +S1, +S2. Absent: diastolic murmur, gallop, rubs, systolic murmur - GI/Abdominal GI/Abdominal exam: Present: distended, hypoactive bowel sounds, soft, no peritoneal signs. Absent: tenderness - Extremities Exam Extremities exam: Present: pedal edema (trace, nonpitting), warm, radial pulses palpable and symetrical. Absent: calf tenderness, cyanotic - Neurological Exam Neurological exam: Present: alert, CN II-XII intact, oriented X3, no focal deficits, strengths equal and symetr throughout. Absent: pronater drift, facial droop, speech deficit - Skin Skin exam: Present: dry, intact, pallor, warm Internal Medicine: Result - Labs CBC & Chem 7: 02/16/17 05:15 02/16/17 05:15 - ABG Interpretation ABG results: ABG ABG pH 7.48 pH Units (7.32-7.45) H 02/17/17 03:07 ABG pCO2 39 mmHg (35-45) 02/17/17 03:07 ABG pO2 80 mmHg (85-104) L 02/17/17 03:07 ABG O2 Saturation 97 % (95-98) 02/17/17 03:07 PT/INR, D-dimer PT 21.5 Seconds (9.4-12.1) H 02/16/17 05:15 - Impressions Impressions Chest X-Ray 02/17/17 02:49 IMPRESSION: Slight Increased haziness in bilateral upper lungs, left greater than right, nonspecific, could represent developing edema or pneumonia. D/ / Sloan Graham MD / Sloan Graham MD Interpreting Provider: Sloan Graham MD Head CT 02/17/17 02:50 IMPRESSION: No acute intracranial abnormality.Mild periventricular and subcortical white matter low attenuation, likely represent sequela of chronic small vessel ischemic disease. D/ / Sloan Graham MD / Sloan Graham MD Interpreting Provider: Sloan Graham MD Consult Discharge Plan - Plan Referrals: Benny Miller MD [Primary Care Provider] -
[2017-02-17 19:15] LABS: INR 2.1; Prothrombin Time 23.6 Seconds (9.4-12.1)
[2017-02-17 19:16] LABS: Basophils # 0.1 K/mcL (0.0-0.2); Basophils % 0.6 %; Eosinophils # 0.5 K/mcL (0.0-0.6); Hematocrit 30.6 % (37.5-50.1); Immature Granulocytes % 0.5 % (0-4); Lymphocytes # 1.1 K/mcL (0.6-4.6); Lymphocytes % 10.9 %; Mean Corpuscular HGB Conc 32.7 g/dL (31.6-35.5); Mean Corpuscular Hemoglobin 31.5 pg (28.0-33.3); Mean Corpuscular Volume 96.5 fL (83.0-100.0); Mean Platelet Volume 8.8 fL (9.4-12.4); Monocytes # 0.8 K/mcL (0.0-1.3); Monocytes % 7.7 %; Neutrophils # 7.5 K/mcL (1.6-8.9); Platelet Count 226 K/mcL (140-400); Red Blood Count 3.17 M/mcL (4.19-5.50); Segmented Neutrophils % 75.3 %
[2017-02-17 19:22] LABS: Calcium 8.6 mg/dL (8.6-10.8); Potassium 3.4 mEq/L (3.5-4.5)
[2017-02-18] MEDS: Piperacillin/Tazobactam 3.375 GM in D5% in Water (Mini-Bag+) 100 ML IVPB SCH ×2 (01:13→10:26)
[2017-02-18] MEDS: Ipratropium/Albuterol Neb 3 ML IH SCH ×3 (03:54→11:32)
[2017-02-18] MEDS: Azithromycin 500 MG in D5% in Water 250 ML IVPB SCH (05:08)
[2017-02-18 05:11] LABS: Basophils # 0.1 K/mcL (0.0-0.2); Basophils % 0.8 %; Eosinophils # 0.6 K/mcL (0.0-0.6); Hematocrit 29.2 % (37.5-50.1); Hemoglobin 9.4 g/dL (12.9-16.9); Immature Granulocytes % 0.6 % (0-4); Lymphocytes # 1.1 K/mcL (0.6-4.6); Lymphocytes % 11.9 %; Mean Corpuscular HGB Conc 32.2 g/dL (31.6-35.5); Mean Corpuscular Hemoglobin 31.4 pg (28.0-33.3); Mean Corpuscular Volume 97.7 fL (83.0-100.0); Mean Platelet Volume 8.4 fL (9.4-12.4); Monocytes # 0.7 K/mcL (0.0-1.3); Monocytes % 7.3 %; Neutrophils # 6.6 K/mcL (1.6-8.9); Platelet Count 216 K/mcL (140-400); Red Blood Count 2.99 M/mcL (4.19-5.50); Red Cell Distribution Width 12.9 % (11.5-14.5); Segmented Neutrophils % 72.4 %
[2017-02-18 05:16] LABS: INR 2.3; Prothrombin Time 25.3 Seconds (9.4-12.1)
[2017-02-18 05:26] LABS: Calcium 8.2 mg/dL (8.6-10.8); Potassium 3.4 mEq/L (3.5-4.5)
[2017-02-18] MEDS: Triamcinolone Acet 0.1% CRM 15 GM TUBE TP SCH (08:40)
[2017-02-18] MEDS: Nystatin Cream 15 GM TUBE TP SCH (08:40)
[2017-02-18] MEDS ORDERED: Simethicone 80 MG TAB.CHEW PO SCH (09:00)
[2017-02-18] MEDS: Furosemide 40 MG/4 ML VIAL IVP SCH (10:27)
[2017-02-18] MEDS: Pantoprazole 40 MG VIAL IVP SCH (10:28)
[2017-02-18 10:57] VITALS: BP 135/70
--- NOTE | 2017-02-18 13:05 | Discharge Summary ---
Date of Encounter: 02/18/17 Time of Encounter: 09:30 - Discharge Diagnosis (1) Confusion Priority: Primary Status: Resolved Comments: Appears confused in the evenings and as the night progresses. Per his , this is been occurring for several weeks. Consistent with dementia. In the mornings, he is alert and oriented 3. Follow-up outpatient. (2) HCAP (healthcare-associated pneumonia) Priority: Primary Status: Acute Comments: Repeat imaging consistent with development of pneumonia to his bilateral upper lobes. On examination, fair to good aeration throughout. Repeat imaging revealing no change to pulmonary findings. Patient stating shortness of breath improved on day of discharge. Treated with vancomycin and Zosyn while admitted. Unable to obtain sputum culture during this admission. Continue supplemental oxygenation as needed. Unknown causative organism however treating for Pseudomonas. Will send to [facility] on Zyvox. (3) Abdominal distension (gaseous) Priority: Primary Status: Acute Comments: Repeat imaging on the day prior to discharge without evidence of bowel obstruction. Able to tolerate a regular diet prior to discharge. Patient had a moderate-sized bowel movement on the day prior to discharge. Sending on simethicone. (4) CHF (congestive heart failure) Priority: Primary Status: Acute Comments: Euvolemic on examination. Held Lasix. Renal function and consistent with his baseline. Continue fluid and sodium restricted diet. Qualifiers: Congestive heart failure type: diastolic Congestive heart failure chronicity: acute Qualified Code(s): I50.31 - Acute diastolic (congestive) heart failure (5) CKD (chronic kidney disease) stage 3, GFR 30-59 ml/min Priority: Secondary Status: Chronic Comments: Remained stable throughout this admission, follow-up outpatient (6) Acute respiratory failure Priority: Primary Status: Acute Comments: Wean down to 1 L per nasal cannula on day of discharge, continue to wean outpatient as he tolerates. Qualifiers: Respiratory failure complication: hypoxia Qualified Code(s): J96.01 - Acute respiratory failure with hypoxia (7) Lower extremity edema Priority: Primary Status: Resolved Qualifiers: Laterality: bilateral Qualified Code(s): R60.0 - Localized edema (8) HEARD (dyspnea on exertion) Priority: Primary Status: Acute Comments: Markedly deconditioned on day of discharge, sending to inpatient rehabilitation. Euvolemic on examination. (9) Leg weakness, bilateral Priority: Primary Status: Acute (10) Tachycardia Priority: Primary Status: Resolved (11) Breast cancer in male Priority: Secondary Status: Resolved Qualifiers: Breast location: unspecified site of breast Laterality: left Qualified Code(s): C50.922 - Malignant neoplasm of unspecified site of left male breast (12) Anticoagulated on Coumadin Priority: Secondary Status: Chronic Comments: INR therapeutic at 2.3 on day of discharge (13) Stage II pressure ulcer of buttock Priority: Secondary Status: Chronic Comments: Present on admission, continue Allevyn and follow-up outpatient Qualifiers: Laterality: unspecified laterality Qualified Code(s): L89.302 - Pressure ulcer of unspecified buttock, stage 2 - Discharge Medications Prescriptions: Albuterol Sulfate [Albuterol Inhaler] 2 puff IH Q4HR PRN #1 hfa.aer.ad PRN Reason: Shortness Of Breath Furosemide [Lasix] 20 mg PO DAILY #30 tab GuaiFENesin ER [Mucinex] 1,200 mg PO BID #28 tbbp.12hr Linezolid [Zyvox] 600 mg PO BID #14 tablet Metoprolol [Lopressor] 25 mg PO BID #60 tablet Omeprazole 20 mg PO DAILY #30 tablet. Simethiconaris [Gas-X] 80 mg PO TID #30 tab.chew Home Medications: Tamoxifen [Nolvadex] 20 mg PO DAILY 02/07/17 [History] Warfarin [Coumadin] 7.5 mg PO DAILY 02/07/17 [History] Ergocalciferol (VITAMIN D2) [Vitamin D] 400 unit PO DAILY 02/08/17 [History] Nystatin Cream [Mycostatin Cream] 1 appl TP BID 02/08/17 [History] Triamcinolone Acet 0.1% CRM [Kenalog] 1 appl TP BID 02/08/17 [History] Albuterol Sulfate [Albuterol Inhaler] 2 puff IH Q4HR PRN #1 hfa.aer.ad 02/18/17 [Rx] Furosemide [Lasix] 20 mg PO DAILY #30 tab 02/18/17 [Rx] GuaiFENesin ER [Mucinex] 1,200 mg PO BID #28 tbbp.12hr 02/18/17 [Rx] Linezolid [Zyvox] 600 mg PO BID #14 tablet 02/18/17 [Rx] Metoprolol [Lopressor] 25 mg PO BID #60 tablet 02/18/17 [Rx] Omeprazole 20 mg PO DAILY #30 tablet. 02/18/17 [Rx] Simethicone [Gas-X] 80 mg PO TID #30 tab.chew 02/18/17 [Rx] Allergies/Adverse Reactions: Allergies No Known Allergies Allergy (Verified 02/07/17 22:49) Procedures/tests Complete & Pending: Procedures Performed prior 72 hours Category Date Time Status Head CT without Contrast [CT head/brain wo con] [CT] Cat Scan 02/17/17 02:50 Completed Stat Date of admission: 02/08/17 10:44 Primary care physician: Yajaira Schofield Consults: 02/10/17 13:34 Consult to Speech Therapy [CONS] Stat Comment: Evaluate, develop and implement POC Reason for Consult: choking while drinking, poss aspiration Time Notified: 13:36 Call Completed: Yes 02/14/17 00:55 Consult to Invasive Line Access Team [CONS] Routine Reason for Consult: Lack of vascular access Line Type: EPIV PICC line indications: Limited vascular access Time Notified: 00:56 Call Completed: No Discharging clinician: Ludy Douglass Anticipated date of discharge: 02/18/17 (sending to [facility]) - Patient Status Disposition: Transfer Inpatient Rehab Fac Condition: Fair Functional capacity at discharge: uses cane/walker Overall status at discharge: patient is progressing back to baseline - Discharge Instructions Follow Up With: Benny Miller MD [Primary Care Provider] - Additional Instructions: Follow-up with primary care provider within 1-2 weeks - Diet and Activity Activity: as per physical therapy, increase activity as tolerated Diet: low salt diet, other (fluid restriction 1800ml/day) Hospital course: Mr. Stone is a 81 year old male with past medical history of left breast cancer status post mastectomy and currently on tamoxifen, PE on Coumadin, non-/never smoker. Patient presented to the emergency department chief complaint shortness of breath and unable to walk. Patient stating over the 2 weeks prior to presentation he had increased difficulty walking and he felt as if his feet were glued to the floor. He also noticed increased edema in his lower extremities and increased fullness in his abdomen. Shortness of breath had progressively worsened. Workup in the emergency department unremarkable. Initial chest x-ray consistent with chronic nodule without acute processes. Patient was admitted to the hospitalist service for further evaluation and management. Echocardiogram confirmed a new diagnosis of diastolic heart failure and the patient was successfully diuresed and started on furosemide. Patient was admitted and observed over the course of 11 days. His renal functioning remained stable. Of note, he had a stage II pressure ulcer to his buttock present on admission. Repeat chest x-ray on day 3 unremarkable. On day 4, chest x-ray was again repeated which revealed possible pneumonia to bilateral upper lobes. Patient was then started on Zosyn. 3 days later, patient had acute abdominal series which revealed stable pulmonic findings however colonic distention up to 10.5 cm was noted. An NG was then inserted to decompress his abdomen. This remained in place for several days. NG tube was removed 2 days prior to discharge and his diet was slowly advanced. Repeat imaging on the day prior to discharge revealed gaseous distention without evidence of bowel obstruction. Patient had a moderate-sized bowel movement on the day prior to discharge. His abdomen remained nontender throughout this admission. His lower extremity edema resolved his dyspnea had improved. Patient was markedly weak during this admission was a 3-4 person maximum assist. OT and PT recommended ECF placement. He was weaned down to 1 L per nasal cannula prior to discharge. He was evaluated by speech therapy who surmised he had no needs. He was educated on fluid and sodium restricted diets as well as his given that the patient is a poor historian regarding his medical care. Of note, in the evenings, patient would become confused. His states that this has been progressing over the past several weeks. During the day, he was alert and oriented 3. Urine culture negative, repeat urinalysis also negative. Blood cultures negative. Sputum culture was ordered however his cough remained nonproductive during this admission and was not obtained. Given that he developed pneumonia while admitted, he was treated for Pseudomonas with Zosyn and vancomycin. He was sent to intermediate on Zyvox. He was discharged to [facility] in stable condition with close outpatient follow-up recommended. ITS Impressions Chest X-Ray 02/07/17 22:35 IMPRESSION: Right super hilar opacity, possible nodule. This is similar to 2014. Follow-up CT chest is suggested when feasible (if not previously performed). D/ / Mekhi Boyd MD / Mekhi Boyd MD Interpreting Provider: Mekhi oByd MD Chest X-Ray 02/10/17 13:34 IMPRESSION 1. No significant change compared to prior radiograph. No acute cardiopulmonary findings. 2. Persistent subtle right suprahilar opacity, stable from prior radiograph dated 2013. If not already performed, consider follow-up chest CT as previously indicated. D/ / Sloan Graham MD / Sloan Graham MD Interpreting Provider: Sloan Graham MD Chest X-Ray 02/11/17 22:30 IMPRESSION: Mild haziness in the upper lung regions suggesting pneumonitis versus developing edema or pneumonia D/ / Andrae Ríos MD / Andrae Ríos MD Interpreting Provider: Andrae Ríos MD Chest/Abdomen X-ray 02/14/17 10:42 IMPRESSION: 1. Gaseous distention of the colon measuring up to 10.5 cm as described. 2. No radiographic evidence of small bowel obstruction. 3. Stable cardiopulmonary status since 02/11/2017, including cardiomegaly, bibasilar opacities, bilateral effusions, and mild edema. D/ / 02/14/2017 14:34:45 Alka Hinson MD / [facility]i Interpreting Provider: Alka Hinson MD X-Ray 02/14/17 16:14 IMPRESSION: 1. Nasogastric tube tip terminates in the proximal stomach. The side port is at the GE junction. Recommend advancement by 3 cm for more optimal positioning. 2. Redemonstration of gaseous distention of the bowel D/ / 02/14/2017 17:09:30 Alka Hinson MD / [facility] Interpreting Provider: Alka Hinson MD X-Ray 02/15/17 08:02 IMPRESSION: Persistent gaseous distension of the left colon but decreased dilatation of the transverse and right colon. D/ / Rubén Myers MD / Rubén Myers MD Interpreting Provider: Rubén Myers MD Chest/Abdomen X-ray 02/16/17 05:00 IMPRESSION: 1. The NG tube tip is in the fundus of the stomach. The proximal port is in the distal esophagus/gastroesophageal junction. This should be advanced. 2. Decrease of the distention of the descending colon by approximately 1 cm since the prior study. 3. Bibasilar atelectasis or infiltrates, left worse than right. D/ / 02/16/2017 08:20:06 Grace Mcgrath MD / [facility] Interpreting Provider: Grace Mcgrath MD Chest X-Ray 02/17/17 02:49 IMPRESSION: Slight Increased haziness in bilateral upper lungs, left greater than right, nonspecific, could represent developing edema or pneumonia. D/ / Sloan Graham MD / Sloan Graham MD Interpreting Provider: Sloan Graham MD Head CT 02/17/17 02:50 IMPRESSION: No acute intracranial abnormality.Mild periventricular and subcortical white matter low attenuation, likely represent sequela of chronic small vessel ischemic disease. D/ / Sloan Graham MD / Sloan Graham MD Interpreting Provider: Sloan Graham MD Chest/Abdomen X-ray 02/17/17 19:08 IMPRESSION: 1. Stable lung findings. 2. Diffuse gaseous distention of colon. Otherwise nonobstructive bowel gas pattern. D/ / Sloan Graham MD / Sloan Graham MD Interpreting Provider: Sloan Graham MD Echocardiogram impressions: Technically suboptimal due to poor echocardiographic windows. LVEF 60-65%. Grossly normal LV chamber size, wall thickness and function. Mild left ventricular diastolic function. Normal right ventricular structure and function. Aortic valve was not well visualized , but grossly appears calcified. No evidence of aortic stenosis by Doppler. No evidence of pulmonary hypertension. - Time Spent with Patient Total time spent providing and/or coordinating discharge services: Greater than 30 minutes (10 days of charting and lengthy discussion with and with patient) - Constitutional Vitals: Temp Pulse Resp BP Pulse Ox 98.0 F 89 14 135/70 92 02/18/17 10:53 02/18/17 10:53 02/18/17 11:45 02/18/17 10:53 02/18/17 11:45 General appearance: Present: cooperative, A&O X 3, no acute distress, answers questions appropriately (when given enough time) - Head Head exam: Present: atraumatic, normocephalic - Eye Eye exam: Present: PERRL, conjuntiva pink, sclera anicteric Pupils: Present: PERRL - Neck Neck exam general surgery: Present: supple, trachea midline. Absent: lymphadenopathy - Respiratory Respiratory exam: Present: decreased breath sounds, rhonchi. Absent: accessory muscle use, rales, respiratory distress, wheezes - Cardiovascular Cardiovascular exam: Present: RRR, +S1, +S2. Absent: diastolic murmur, gallop, rubs, systolic murmur - GI/Abdominal GI/Abdominal exam: Present: distended, normal bowel sounds, soft, no peritoneal signs. Absent: tenderness - Extremities Exam Extremities exam: Present: warm, radial pulses palpable and symetrical. Absent : calf tenderness, cyanotic, pedal edema - Neurological Exam Neurological exam: Present: alert, CN II-XII intact, oriented X3, no focal deficits, strengths equal and symetr throughout. Absent: pronater drift, facial droop, speech deficit - Skin Skin exam: Present: dry, intact, pallor, warm
--- NOTE | 2017-02-18 13:37 | Physician Discharge Referral ---
ExtendedCare Referral Info Transfer To: [facility] Provider in Charge: Monster Douglass CNP Provider in Charge after Transfer: PCP Institutional Level of Care: Skilled - Diagnosis (1) Confusion Priority: Primary Status: Resolved (2) HCAP (healthcare-associated pneumonia) Priority: Primary Status: Acute (3) Abdominal distension (gaseous) Priority: Primary Status: Acute (4) CHF (congestive heart failure) Priority: Primary Status: Acute (5) CKD (chronic kidney disease) stage 3, GFR 30-59 ml/min Priority: Secondary Status: Chronic (6) Acute respiratory failure Priority: Primary Status: Acute (7) Lower extremity edema Priority: Primary Status: Resolved (8) HEARD (dyspnea on exertion) Priority: Primary Status: Acute (9) Leg weakness, bilateral Priority: Primary Status: Acute (10) Tachycardia Priority: Primary Status: Resolved (11) Breast cancer in male Priority: Primary Status: Resolved (12) Anticoagulated on Coumadin Priority: Secondary Status: Chronic (13) Stage II pressure ulcer of buttock Priority: Secondary Status: Chronic Prognosis: Fair Aware of Diagnosis: Patient, Family Aware of Prognosis: Patient, Family - Transfer Medications Prescriptions: Albuterol Sulfate [Albuterol Inhaler] 2 puff IH Q4HR PRN #1 hfa.aer.ad PRN Reason: Shortness Of Breath Furosemide [Lasix] 20 mg PO DAILY #30 tab GuaiFENesin ER [Mucinex] 1,200 mg PO BID #28 tbbp.12hr Linezolid [Zyvox] 600 mg PO BID #14 tablet Metoprolol [Lopressor] 25 mg PO BID #60 tablet Omeprazole 20 mg PO DAILY #30 tablet. Simethicone [Gas-X] 80 mg PO TID #30 tab.chew Home Medications: Tamoxifen [Nolvadex] 20 mg PO DAILY 02/07/17 [History] Warfarin [Coumadin] 7.5 mg PO DAILY 02/07/17 [History] Ergocalciferol (VITAMIN D2) [Vitamin D] 400 unit PO DAILY 02/08/17 [History] Nystatin Cream [Mycostatin Cream] 1 appl TP BID 02/08/17 [History] Triamcinolone Acet 0.1% CRM [Kenalog] 1 appl TP BID 02/08/17 [History] Albuterol Sulfate [Albuterol Inhaler] 2 puff IH Q4HR PRN #1 hfa.aer.ad 02/18/17 [Rx] Furosemide [Lasix] 20 mg PO DAILY #30 tab 02/18/17 [Rx] GuaiFENesin ER [Mucinex] 1,200 mg PO BID #28 tbbp.12hr 02/18/17 [Rx] Linezolid [Zyvox] 600 mg PO BID #14 tablet 02/18/17 [Rx] Metoprolol [Lopressor] 25 mg PO BID #60 tablet 02/18/17 [Rx] Omeprazole 20 mg PO DAILY #30 tablet.dr 02/18/17 [Rx] Simethicone [Gas-X] 80 mg PO TID #30 tab.chew 02/18/17 [Rx] Allergies/Adverse Reactions: Allergies No Known Allergies Allergy (Verified 02/07/17 22:49) - Respiratory Orders Oxygen / L per min (1) Smoking Cessation: Smoking cessation has been advised. For more information, call the [employer] Quit Line at 9-535-RFXQ-NOW. - Ancillary Orders May use pressure relief devices daily prn, May go on SHELDON w/family/respon alliance party w /meds at nurse discretion PRN, May have alcoholic beverages, May consult with Dentist, Divisional Merchandising Manager, Agronomist PRN - Advance Directives Living Will: No Power of Operator/Assistant Foreman: No Code Status: Full Code - Mobility Orders Ambulate (per PT) - Rehabiliation Orders Rehab Potential: Fair Rehab Orders: ROM Exercises, Evaluation for Physical Therapy, Evaluation for Occupational Therapy - Treatments Skin tear care topically daily PRN per policy, May check for fecal impaction rectally daily PRN, Fleet enema rectally every other day PRN cleansing purposes - Diet Orders No Added Salt (SCARLETT) (fluid restriction 1800ml/day) CERTIFICATION: I certify that the transfer of the above named patient to an Extended Care Facility is necessary for the continuing treatment of the diagnosis listed. The above information is true and accurate reflection of patient's current condition. Confidential - Redisclosure prohibited without a patient's written consent.
[2017-02-18] MEDS ORDERED: Aminoglycoside Consult 1 EACH MC ONE (16:59)
--- NOTE | 2017-02-19 18:06 | Electrocardiograph Report ---
[place] [id number] Test Date: 2017-02-18 Pat Name: Edison Stone Department: 113 Room: 3B Gender: M [employer] Sergeant: : 1935 Requested By: Ludy Douglass Order Number: [id number] Reading MD: Dontrell Shaffer MD Measurements Intervals [place] Rate: 132 P: 220 NV: 133 QRS: -38 QRSD: 108 T: 85 QT: 316 QTc: 394 Interpretive Statements SINUS TACHYCARDIA MARKED LEFT AXIS DEVIATION Poor R wave progression Electronically Signed On 02-19-2017 18:05:22 EDT by Dontrell Shaffer MD
== END 2017-02-18 17:00 | DRG 291 ==
LOC: 3BNU 22:31 → EMEROO 22:31 → 3BNU 02-08 02:30
PROVIDERS: ADMIT Internal Medicine; ATTEND Nurse Practitioner Family